=== PATIENT | male | born 1970 | race Caucasian/White ===

== ENCOUNTER 2018-03-25 20:29 | Emergency (ER) | payer OTHER ==
[2018-03-25 21:11] VITALS: RESP 18
--- NOTE | 2018-03-25 21:39 | ED ---
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 He reports that he was at a parking lot slipped and fell on ice and fell backwards hitting his head. He reports loss of consciousness. He reports that another masonry instructor found him and he was coveredin slight snow. He does not know for how long he lost consciousness before. Patient reports he drove himself here from [place] which is approximately 25-30 minutes away. Patient states that he feels slightly nauseated this time. He does complain of a headache.Patient denies blood thinner use. - Related Data Previous Rx's Medication Instructions Recorded Acetaminophen Tab [Tylenol Tab] 1,000 mg PO Q6HR #20 tablet 03/25/18 Ibuprofen 600 mg PO TID #20 tablet 03/25/18 Ondansetron Odt [Zofran Odt] 4 mg PO Q8HR PRN #12 tab 03/25/18 Allergies/Adverse reactions: Allergies Allergy/AdvReac Type Severity Reaction Status Date / Time No Known Allergies Allergy Verified 03/25/18 21:11 Review of Systems ROS Statement: Those systems with pertinent positive or pertinent negative responses have been documented in the HPI. ROS Other: All systems not noted in ROS Statement are negative. Past Medical History Past Medical History: CVA/TIA, Diabetes Mellitus, Hyperlipidemia, Hypertension History of Any Multi-Drug Resistant Organisms: None Reported Past Surgical History: Joint Replacement Additional Past Surgical History / Comment(s): Stent placed in groin Past Psychological History: No Psychological Hx Reported Smoking Status: Current every day smoker Past Alcohol Use History: None Reported Past Drug Use History: None Reported General Exam - General Exam Comments Initial Comments: 48-year-old male. Morbidly obese. Limitations: no limitations General appearance: alert, in no apparent distress Head exam: Present: atraumatic, normocephalic, normal inspection Eye exam: Present: normal appearance, PERRL, EOMI. Absent: scleral icterus, conjunctival injection, periorbital swelling ENT exam: Present: normal exam, mucous membranes moist Neck exam: Present: normal inspection. Absent: tenderness, meningismus, lymphadenopathy Respiratory exam: Present: normal lung sounds bilaterally. Absent: respiratory distress, wheezes, rales, rhonchi, stridor Cardiovascular Exam: Present: regular rate, normal rhythm, normal heart sounds. Absent: systolic murmur, diastolic murmur, rubs, gallop, clicks GI/Abdominal exam: Present: soft, normal bowel sounds. Absent: distended, tenderness, guarding, rebound, rigid Extremities exam: Present: normal inspection, full ROM, normal capillary refill. Absent: tenderness, pedal edema, joint swelling, calf tenderness Back exam: Present: normal inspection, full ROM Neurological exam: Present: alert, oriented X3, CN II-XII intact Expanded Patient oriented to: Present: person, place, time Speech: Present: fluid speech Cranial nerves: EOM's Intact: Normal Cerebellar function: Finger to Nose: Normal Upper motor neuron: Pronator Drift: Normal Sensory exam: Upper Extremity Light Touch: Normal, Lower Extremity Light Touch: Normal Motor strength exam: RUE: 5, LUE: 5, RLE: 5, LLE: 5 Eye Response: (4) open spontaneously Motor Response: (6) obeys commands Verbal Response: (5) oriented [place] Total: 15 Psychiatric exam: Present: normal affect, normal mood Skin exam: Present: warm, dry, intact, normal color. 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 He reports that he was at a parking lot slipped and fell on ice and fell backwards hitting his head. He reports loss of consciousness. Patient has no neurological deficits and does complain of nausea and dizziness. Patient given cT brain and C spine which are negative. Patient is with friends whom agree to monitor patient. DC with Rx for nausea medications. Discussed patient has concussion and should have follow up with PCP. Given note for work. - Radiology Data Radiology results: report reviewed Negative CT brain and C-spine Disposition Clinical Impression: Concussion with loss of consciousness Disposition: HOME SELF-CARE Condition: Good Instructions (If sedation given, give patient instructions): Concussion (ED) Additional Instructions: Patient is advised to follow-up with your primary care physician. Return to the emergency department if any alarming signs or symptoms occur. Motrin and Tylenol for pain. He can use Zofran for nausea. Patient should be monitored for the next 24 hours. Prescriptions: Acetaminophen Tab [Tylenol Tab] 1,000 mg PO Q6HR #20 tablet Ibuprofen 600 mg PO TID #20 tablet Ondansetron Odt [Zofran Odt] 4 mg PO Q8HR PRN #12 tab PRN Reason: Nausea Is patient prescribed a controlled substance at d/c from ED?: No Referrals: Mariam Jorge MD [Primary Care Provider] - 1-2 days Time of Disposition: 22:42
--- NOTE | 2018-03-25 21:54 | CT ---
EXAMINATION TYPE: CT brain vidya ortiz con DATE OF EXAM: 03/25/2018 COMPARISON: None HISTORY: Slipped on ice and hit head. +LOC. CT DLP: 1512.9 mGycm Automated exposure control for dose reduction was used. TECHNIQUE: CT scan of the head and cervical spine are performed without contrast. FINDINGS: Ventricles and sulci appear normal. There is no mass effect nor midline shift. There is n o sign of intracranial hemorrhage. The calvarium is intact. The cervical vertebra have normal alignment. Disc spaces are fairly normal. Posterior elements are in tact. Facet joints are intact. The skull base is intact. There is no evidence of cervical spine fract ure. IMPRESSION: Negative CT scan of the brain. Negative CT scan of the cervical spine. No fracture.
[2018-03-25] MEDS ORDERED: IBUPROFEN 600 MG TAB PO STA (22:15)
[2018-03-25] MEDS ORDERED: ACETAMINOPHEN TAB 500 MG TAB PO STA (22:15)
[2018-03-25] MEDS ORDERED: ONDANSETRON 4 MG ODT STARTER PACK 2 TAB BTL PO STA (22:45)
[2018-03-25 22:56] VITALS: BP 134/79; PULSE 95; TEMP 97.6
== END 2018-03-25 22:56 | disposition home or self-care (01) ==
LOC: EC 20:29
DX: S06.0X9A Concussion with loss of consciousness of unspecified duration, initial encounter (principal); R40.2142 Coma scale, eyes open, spontaneous, at arrival to emergency department; R40.2252 Coma scale, best verbal response, oriented, at arrival to emergency department; R40.2362 Coma scale, best motor response, obeys commands, at arrival to emergency department; F17.200 Nicotine dependence, unspecified, uncomplicated; Z86.73 Personal history of transient ischemic attack (TIA), and cerebral infarction without residual deficits; Z96.89 Presence of other specified functional implants; W00.0XXA Fall on same level due to ice and snow, initial encounter; Y92.481 Parking lot as the place of occurrence of the external cause; Y99.0 Civilian activity done for income or pay
CPT/HCPCS: 72125; 70450; 99284; S0119

== ENCOUNTER → 2018-10-04 | Outpatient (CLI) | payer OTHER ==
--- NOTE | 2018-10-04 13:41 | MR ---
EXAMINATION TYPE: MR lumbar spine wo con DATE OF EXAM: 10/04/2018 COMPARISON: NONE HISTORY: Strain of muscle, fascia and tendon, fell at work, pain x 2 months TECHNIQUE: Multiplanar, multisequence imaging of the lumbar spine is performed without IV contrast. FINDINGS: Sagittal images of the lumbar spine show vertebral body heights and alignment to appear sat isfactory. Disc desiccation L4-L5 and L5-S1 levels. Disc space heights are maintained. No large poste rior disc herniations on sagittal images. The conus medullaris is normal in position and signal endin g at L1 level. The bone marrow signal intensity is within normal limits. Axial images show the T12-L1, L1-L2, L2-L3, and L3-L4 levels to appear within normal limits. Axial images at the L4-L5 level show mild facet degenerative changes bilaterally with mild broad disc bulge causing mild left greater than right anterior inferior neural foraminal narrowing. Spinal sonal l is preserved. Axial images at the L5-S1 level show mild facet degenerative changes bilaterally with tiny central di sc protrusion but the spinal canal is preserved. There is mild left greater than right bilateral neur al foraminal narrowing. No suspicious incidental retroperitoneal findings. IMPRESSION: Mild multilevel degenerative changes lower lumbar spine as detailed above.
== END | disposition home or self-care (01) ==
LOC: RADMRIMAIN 12:35
PROVIDERS: ATTEND Pediatrics
DX: M47.817 Spondylosis without myelopathy or radiculopathy, lumbosacral region (principal)
CPT/HCPCS: 72148

== ENCOUNTER → 2018-11-14 | Outpatient (CLI) | payer OTHER | END | disposition home or self-care (01) | LOC: RADMRIMAIN 12:15 | PROVIDERS: ATTEND Physical Medicine & Rehabilitation | DX: Z53.9 Procedure and treatment not carried out, unspecified reason (principal) ==

== ENCOUNTER 2019-03-05 15:58 | Emergency (ER) | payer OTHER ==
[2019-03-05 16:30] VITALS: RESP 18; TEMP 98.8
--- NOTE | 2019-03-05 17:09 | US ---
EXAMINATION TYPE: US venous doppler duplex LE LT DATE OF EXAM: 03/05/2019 5:00 PM COMPARISON: NONE CLINICAL HISTORY: pain. Pt states left leg pain, pt states h/o of blood clot within brain SIDE PERFORMED: Left TECHNIQUE: The lower extremity deep venous system is examined utilizing real time linear array sonog stefania with graded compression, doppler sonography and color-flow sonography. VESSELS IMAGED: External Iliac Vein (EIV) Common Femoral Vein Deep Femoral Vein Greater Saphenous Vein * Femoral Vein Popliteal Vein Small Saphenous Vein * Proximal Calf Veins (* superficial vessels) Unable to visualize left EIV and GSV due to pt in too much pain to tolerate probe pressure within g roin Left Leg: Visualized portions show no evidence of DVT IMPRESSION: No evidence of deep venous thrombosis in the left leg.
[2019-03-05 17:17] LABS: Basophils # (A) 0.2 k/uL (0-0.2); Basophils % (A) 2 %; Eosinophils # (A) 0.6 k/uL (0-0.7); Eosinophils % (A) 5 %; HGB 15.6 gm/dL (13.0-17.5); Lymphocytes # (A) 2.5 k/uL (1.0-4.8); Lymphocytes % (A) 22 %; MCH 28.9 pg (25.0-35.0); MCHC 33.2 g/dL (31.0-37.0); MCV 87.2 fL (80.0-100.0); Monocytes # (A) 0.5 k/uL (0-1.0); Monocytes % (A) 4 %; Neutrophils # (A) 7.3 k/uL (1.3-7.7); Neutrophils % (A) 64 %; Platelet Count 264 k/uL (150-450); RBC 5.39 m/uL (4.30-5.90); RDW 12.9 % (11.5-15.5); WBC 11.3 k/uL (3.8-10.6)
--- NOTE | 2019-03-05 18:01 | XR ---
EXAMINATION TYPE: XR chest 2V DATE OF EXAM: 03/05/2019 COMPARISON: 02/15/2010 HISTORY: Chest pain TECHNIQUE: FINDINGS: Heart and mediastinum are normal and lungs are clear. Diaphragm is normal. Bony thorax appe ars normal. Pulmonary vascularity is normal. IMPRESSION: Normal chest.
[2019-03-05 18:07] LABS: African American GFR (CKD) >90 (>60 ml/min/1.73 sqM); Anion Gap 11 mmol/L; Blood Urea Nitrogen 17 mg/dL (9-20); Calcium 9.1 mg/dL (8.4-10.2); Carbon Dioxide 23 mmol/L (22-30); Chloride 103 mmol/L (98-107); Glucose 274 mg/dL (74-99); Non-African American GFR(CKD) >90 (>60 ml/min/1.73 sqM); Sodium 137 mmol/L (137-145)
[2019-03-05] MEDS ORDERED: ASPIRIN 81 MG PO STA (18:19)
--- NOTE | 2019-03-05 18:22 | ED ---
General Adult HPI - General Chief complaint: Extremity Injury, Lower Stated complaint: poss DVT in left leg Time Seen by Provider: 03/05/19 17:19 Source: patient Mode of arrival: ambulatory Limitations: no limitations - History of Present Illness Initial comments: 49-year-old male who presents to the emergency room today for evaluation of pain in his left groin. Patient reports that he has injuries from a few months ago to the left knee and hip. He reports that he did develop a varicosity in the left groin. He states he's had increasing amount of pain in this area and he was advised to come to the emergency room for evaluation to rule out DVT. In addition, the patient reports that he has been extremity chest pain and some shortness of breath on exertion. He reports the chest pain is left-sided in nature inferior to the left pectoralis. Patient reports that as a sharp achy pain. He states that it started about 5 days ago when he was exercising at the gym. He states that it has subsided and plan, however he has had some episodic shortness of breath with exertion. Patient has reported history of hypertension and diabetes and TIA in the past. He smokes cigarettes but denies drugs or alcohol. - Related Data Previous Rx's Medication Instructions Recorded Acetaminophen Tab [Tylenol Tab] 1,000 mg PO Q6HR #20 tablet 03/25/18 Ibuprofen 600 mg PO TID #20 tablet 03/25/18 Ondansetron Odt [Zofran Odt] 4 mg PO Q8HR PRN #12 tab 03/25/18 Allergies Allergy/AdvReac Type Severity Reaction Status Date / Time No Known Allergies Allergy Verified 03/25/18 21:11 Review of Systems ROS Statement: Those systems with pertinent positive or pertinent negative responses have been documented in the HPI. ROS Other: All systems not noted in ROS Statement are negative. Past Medical History Past Medical History: CVA/TIA, Diabetes Mellitus, Hyperlipidemia, Hypertension History of Any Multi-Drug Resistant Organisms: None Reported Past Surgical History: Joint Replacement Additional Past Surgical History / Comment(s): Stent placed in groin Past Psychological History: No Psychological Hx Reported Smoking Status: Current every day smoker Past Alcohol Use History: None Reported Past Drug Use History: None Reported General Exam Limitations: no limitations General appearance: alert, in no apparent distress Head exam: Present: atraumatic, normocephalic Respiratory exam: Present: normal lung sounds bilaterally. Absent: respiratory distress, wheezes, rhonchi Cardiovascular Exam: Present: regular rate, normal rhythm, normal heart sounds GI/Abdominal exam: Present: soft, distended, normal bowel sounds Extremities exam: Present: normal inspection, full ROM, normal capillary refill, calf tenderness (Mild left calf tenderness), other (Patient does have a varicosity in the medial aspect of the left groin. This mildly tender on palpation. There are 2+ bilateral femoral pulses. Patient has full range of motion at bilateral hips and knees.). Absent: pedal edema Back exam: Present: normal inspection, full ROM Neurological exam: Present: alert, oriented X3 Psychiatric exam: Present: normal affect, normal mood Skin exam: Present: warm, dry, intact, normal color Course Vital Signs 03/05/19 03/05/19 16:25 18:50 Temperature 98.8 F Pulse Rate 62 95 Respiratory 18 18 Rate Blood Pressure 137/89 133/73 O2 Sat by Pulse 98 93 L Oximetry - Reevaluation(s) Time: 18:30 (I discussed the results with the patient. I advised there is no evidence of DVT. I discussed chest x-ray as well as lab work. I advised the patient that I wanted to admit him to the hospital. I discussed that this would be best secondary to his symptoms and risk factors.) Time: 19:15 (I discussed this with patient that he is admitted to the hospital. Discussed that we will administer heparin. I advised that he'll be seen by cardiology. Discussed that he will have a stress test. Patient is now refusing to stay in the hospital. States he wants to think about it.) Time: 19:30 (I went back to see the patient, he has not had bedside at this time.) Time: 19:45 (Patient has returned to the bedside. I do believe he went outside to smoke a cigarette. I again advised the patient would be best if he was admitted to the hospital for ACS workup seen by cardiology and have a stress test. Patient states that he does not want to stay. He wants to leave AGAINST MEDICAL ADVICE. I did discuss with the patient that it would be best if he stay for completion of care. I did advise that we were going to administer heparin. I discussed that it would be better to complete care, patient relates that he will leave AGAINST MEDICAL ADVICE.) EKG Findings - EKG Comments: EKG Findings:: EKG was completed at 1639. Heart rate 92. Normal sinus rhythm OH 160 QRS 98 QT/QTC 362/447, normal axis. No ST elevation or depression noted. Medical Decision Making - Medical Decision Making HEART SCORE History Moderately suspicious 1, EKG: Normal 0 Age: 45-64 1 Risk factors >3 2 Initial Troponin Normal 0 HEART 4 49-year-old male presents to emergency room today for evaluation of left groin pain and intermittent exertional dyspnea with episodic chest pain. Patient denies any pain at this time. He has exertional dyspnea. He has multiple risk factors including obesity, tobacco abuse, hypertension as well as hy perlipidemia. Patient's heart score is 4. He has not had a stress test since 2017. Patient's EKG today here is within normal limits, normal sinus rhythm without any ST elevation or depression. His troponin is normal. D-dimer is negative. Ultrasound of the left lower extremity is negative. I discussed with patient that I would like to admit him to the hospital. Originally he was hesitant, however he then agreed. Patient was admitted in the hospital, however he signed out AGAINST MEDICAL ADVICE prior to replacing the order for him to be admitted. He understands that he was going to be admitted to the hospital placed on heparin as well as a cardiac consult. The patient refused admission to the hospital after pondering the admission for over half an hour. Patient understands that he is at risk for an acute MO. He and I had a multiple discussions in regards to the reasoning for admission to the hospital and nursing staff was present, vivien wilkinson I advised him I would be far better for him to stay here in the emergency room and be admitted to the hospital for completion of care. I advised that he could have an acute MO and . Patient verbalized understanding of the possible detrimental indications that could occur with him leaving against medical - Lab Data Result diagrams: 03/05/19 17:05 03/05/19 17:05 Lab Results 03/05/19 03/05/19 03/05/19 Range/Units 17:05 17:05 17:05 WBC 11.3 H (3.8-10.6) k/uL RBC 5.39 (4.30-5.90) m/uL Hgb 15.6 (13.0-17.5) gm/dL Hct 47.0 (39.0-53.0) % MCV 87.2 (80.0-100.0) fL MCH 28.9 (25.0-35.0) pg MCHC 33.2 (31.0-37.0) g/dL RDW 12.9 (11.5-15.5) % Plt Count 264 (150-450) k/uL Neutrophils % 64 % Lymphocytes % 22 % Monocytes % 4 % Eosinophils % 5 % Basophils % 2 % Neutrophils # 7.3 (1.3-7.7) k/uL Lymphocytes # 2.5 (1.0-4.8) k/uL Monocytes # 0.5 (0-1.0) k/uL Eosinophils # 0.6 (0-0.7) k/uL Basophils # 0.2 (0-0.2) k/uL D-Dimer 0.48 (<0.60) mg/L FEU Sodium (137-145) mmol/L Potassium (3.5-5.1) mmol/L Chloride (98-107) mmol/L Carbon Dioxide (22-30) mmol/L Anion Gap mmol/L BUN (9-20) mg/dL Creatinine (0.66-1.25) mg/dL Est GFR (CKD-EPI)AfAm (>60 ml/min/1.73 sqM) Est GFR (CKD-EPI)NonAf (>60 ml/min/1.73 sqM) Glucose (74-99) mg/dL Calcium (8.4-10.2) mg/dL Troponin I <0.012 (0.000-0.034) ng/mL 03/05/19 Range/Units 17:05 WBC (3.8-10.6) k/uL RBC (4.30-5.90) m/uL Hgb (13.0-17.5) gm/dL Hct (39.0-53.0) % MCV (80.0-100.0) fL MCH (25.0-35.0) pg MCHC (31.0-37.0) g/dL RDW (11.5-15.5) % Plt Count (150-450) k/uL Neutrophils % % Lymphocytes % % Monocytes % % Eosinophils % % Basophils % % Neutrophils # (1.3-7.7) k/uL Lymphocytes # (1.0-4.8) k/uL Monocytes # (0-1.0) k/uL Eosinophils # (0-0.7) k/uL Basophils # (0-0.2) k/uL D-Dimer (<0.60) mg/L FEU Sodium 137 (137-145) mmol/L Potassium 4.0 (3.5-5.1) mmol/L Chloride 103 (98-107) mmol/L Carbon Dioxide 23 (22-30) mmol/L Anion Gap 11 mmol/L BUN 17 (9-20) mg/dL Creatinine 0.83 (0.66-1.25) mg/dL Est GFR (CKD-EPI)AfAm >90 (>60 ml/min/1.73 sqM) Est GFR (CKD-EPI)NonAf >90 (>60 ml/min/1.73 sqM) Glucose 274 H (74-99) mg/dL Calcium 9.1 (8.4-10.2) mg/dL Troponin I (0.000-0.034) ng/mL When compared to previous EKG there are: previous EKG unavailable - Radiology Data Radiology results: report reviewed, image reviewed Disposition Clinical Impression: Chest pain, Exertional dyspnea, Leg pain, left Disposition: Left Against Medical Advice Condition: Stable Referrals: Mariam Jorge MD [Primary Care Provider] - 1-2 days
[2019-03-05 18:51] VITALS: BP 133/73; PULSE 95
== END 2019-03-05 19:57 | disposition left against medical advice (07) ==
LOC: EC 15:58
DX: M79.602 Pain in left arm (principal); R07.9 Chest pain, unspecified; R06.09 Other forms of dyspnea; R10.32 Left lower quadrant pain; F17.210 Nicotine dependence, cigarettes, uncomplicated; Z86.14 Personal history of Methicillin resistant Staphylococcus aureus infection; Z96.698 Presence of other orthopedic joint implants; Z53.29 Procedure and treatment not carried out because of patient's decision for other reasons
CPT/HCPCS: 36415; 71046; 80048; 84484; 85025; 85379; 99284

== ENCOUNTER 2019-08-08 02:46 | Observation (INO) | payer OTHER ==
[2019-08-08 02:58] VITALS: TEMP 98
[2019-08-08 03:00] LABS: Glucose,Whole Blood 112 mg/dL (75-99)
[2019-08-08 04:22] LABS: HCT 46.6 % (39.0-53.0); HGB 15.3 gm/dL (13.0-17.5); MCH 29.3 pg (25.0-35.0); MCHC 32.9 g/dL (31.0-37.0); MCV 88.8 fL (80.0-100.0); RBC 5.24 m/uL (4.30-5.90); RDW 13.3 % (11.5-15.5); WBC 14.2 k/uL (3.8-10.6)
[2019-08-08 04:23] LABS: Glucose,Whole Blood 69 mg/dL (75-99)
[2019-08-08 04:23] LABS: Basophils # (A) 0.2 k/uL (0-0.2); Basophils % (A) 1 %; Eosinophils # (A) 0.7 k/uL (0-0.7); Eosinophils % (A) 5 %; Lymphocytes # (A) 3.7 k/uL (1.0-4.8); Lymphocytes % (A) 26 %; Mean Platelet Volume 7.8; Monocytes # (A) 0.9 k/uL (0-1.0); Monocytes % (A) 6 %; Neutrophils # (A) 8.4 k/uL (1.3-7.7); Neutrophils % (A) 59 %; Platelet Count 256 k/uL (150-450)
[2019-08-08] MEDS ORDERED: DEXTROSE 5%-0.45% NACL 1,000 ML IV ONE (04:31)
[2019-08-08 04:33] LABS: African American GFR (CKD) >90 (>60 ml/min/1.73 sqM); Anion Gap 7 mmol/L; Blood Urea Nitrogen 13 mg/dL (9-20); Calcium 9.4 mg/dL (8.4-10.2); Carbon Dioxide 23 mmol/L (22-30); Chloride 108 mmol/L (98-107); Glucose 59 mg/dL (74-99); Non-African American GFR(CKD) >90 (>60 ml/min/1.73 sqM); Potassium 3.6 mmol/L (3.5-5.1); Sodium 138 mmol/L (137-145)
[2019-08-08 04:42] LABS: Glucose,Whole Blood 125 mg/dL (75-99)
[2019-08-08 05:07] LABS: Glucose,Whole Blood 144 mg/dL (75-99)
[2019-08-08] MEDS ORDERED: NALOXONE 0.4 MG/ML 1 ML VIAL IV PRN (06:06)
[2019-08-08] MEDS ORDERED: ONDANSETRON 4 MG/2 ML VIAL IVP PRN (06:06)
--- NOTE | 2019-08-08 06:14 | ED ---
General Adult HPI - General Chief complaint: Anxiety Stated complaint: Anxiety Time Seen by Provider: 08/08/19 03:21 Source: patient, EMS Mode of arrival: EMS Limitations: no limitations - History of Present Illness Initial comments: This patient is 49-year-old man who arrives for evaluation after having had a hypoglycemic episode. The patient also reports that he was feeling very anxious. He did have an argument and states that he broke up with his girlfriend after that. The patient then reportedly took an overdose of his insulin and his roommate had to call EMS when his blood sugar was low. The patient states that he was feeling better after receiving some dextrose. All of the symptoms have resolved. Onset/Timin -: hour(s) Consistency: now resolved Improves with: medication Worsens with: none Associated Symptoms: shortness of breath Treatments Prior to Arrival: none - Related Data Home Medications Medication Instructions Recorded Confirmed Dextroamphetamine/Amphetamine 20 mg PO TID 08/08/19 08/08/19 [Adderall] INSULIN LISPRO (humaLOG) [humaLOG] See Protocol SQ AC-TID 08/08/19 08/08/19 Insulin Glargine,Hum.rec.anlog 60 unit SQ QAM 08/08/19 08/08/19 [Basaglar Kwikpen U-100] Lisinopril [Zestril] 20 mg PO DAILY 08/08/19 08/08/19 Omeprazole [PriLOSEC] 40 mg PO DAILY 08/08/19 08/08/19 Simvastatin [Zocor] 20 mg PO HS 08/08/19 08/08/19 amLODIPine [Norvasc] 5 mg PO DAILY 08/08/19 08/08/19 metFORMIN HCL [Glucophage] 500 mg PO BID 08/08/19 08/08/19 Allergies Allergy/AdvReac Type Severity Reaction Status Date / Time No Known Allergies Allergy Verified 08/08/19 08:42 Review of Systems ROS Statement: Those systems with pertinent positive or pertinent negative responses have been documented in the HPI. ROS Other: All systems not noted in ROS Statement are negative. Constitutional: Denies: fever, chills Respiratory: Reports: dyspnea. Denies: cough, wheezes, hemoptysis Cardiovascular: Reports: palpitations. Denies: chest pain, edema, syncope Gastrointestinal: Denies: abdominal pain, nausea, vomiting, diarrhea Genitourinary: Denies: dysuria, hematuria Musculoskeletal: Denies: back pain Skin: Denies: rash Neurological: Denies: headache, weakness, numbness, paresthesias Psychiatric: Reports: anxiety, suicidal thoughts. Denies: auditory hallucinations, visual hallucinations, homicidal thoughts Past Medical History Past Medical History: CVA/TIA, Diabetes Mellitus, Hyperlipidemia, Hypertension History of Any Multi-Drug Resistant Organisms: None Reported Past Surgical History: Joint Replacement Additional Past Surgical History / Comment(s): Stent placed in groin Past Psychological History: No Psychological Hx Reported, Anxiety Smoking Status: Current every day smoker Past Alcohol Use History: Daily Past Drug Use History: Marijuana General Exam Limitations: no limitations General appearance: alert, in no apparent distress Head exam: Present: atraumatic, normocephalic Eye exam: Present: normal appearance. Absent: scleral icterus, conjunctival injection ENT exam: Present: mucous membranes dry Neck exam: Present: normal inspection Respiratory exam: Present: normal lung sounds bilaterally. Absent: respiratory distress, wheezes, rales, rhonchi, stridor Cardiovascular Exam: Present: regular rate, normal rhythm, normal heart sounds. Absent: systolic murmur, diastolic murmur, rubs, gallop GI/Abdominal exam: Present: soft. Absent: distended, tenderness, guarding, rebound, rigid, mass Extremities exam: Present: normal inspection, normal capillary refill. Absent: pedal edema, calf tenderness Back exam: Present: normal inspection. Absent: CVA tenderness (R), CVA tenderness (L) Neurological exam: Present: alert Psychiatric exam: Present: depressed, flat affect. Absent: agitated, manic, homicidal ideation, suicidal ideation Skin exam: Present: warm, dry, intact, normal color. Absent: rash Course Vital Signs 08/08/19 08/08/19 08/08/19 02:55 05:00 06:38 Temperature 98.0 F Pulse Rate 107 H 94 96 Respiratory 16 18 18 Rate Blood Pressure 134/75 117/72 131/78 O2 Sat by Pulse 94 L 92 L 96 Oximetry 08/08/19 08/08/19 08/08/19 08:00 09:00 10:51 Temperature Pulse Rate 92 92 Respiratory 18 18 20 Rate Blood Pressure 129/93 129/93 O2 Sat by Pulse 96 Oximetry Medical Decision Making - Medical Decision Making This patient is a 49-year-old man arrived by ambulance after she reportedly had an episode of hypoglycemia at home. The patient was reported by his roommate to have taken too much insulin. This followed an argument with his girlfriend which resulted in her breaking up with him. The patient is not being forthcoming about the full circumstances of his arrival here. We will admit the patient to have psychiatric consultation and monitor blood sugar to ensure that there is no further hypoglycemia. - Lab Data Result diagrams: 08/08/19 04:16 08/08/19 04:16 Lab Results 08/08/19 08/08/19 08/08/19 Range/Units 02:52 04:16 04:16 WBC 14.2 H (3.8-10.6) k/uL RBC 5.24 (4.30-5.90) m/uL Hgb 15.3 (13.0-17.5) gm/dL Hct 46.6 (39.0-53.0) % MCV 88.8 (80.0-100.0) fL MCH 29.3 (25.0-35.0) pg MCHC 32.9 (31.0-37.0) g/dL RDW 13.3 (11.5-15.5) % Plt Count 256 (150-450) k/uL Neutrophils % 59 % Lymphocytes % 26 % Monocytes % 6 % Eosinophils % 5 % Basophils % 1 % Neutrophils # 8.4 H (1.3-7.7) k/uL Lymphocytes # 3.7 (1.0-4.8) k/uL Monocytes # 0.9 (0-1.0) k/uL Eosinophils # 0.7 (0-0.7) k/uL Basophils # 0.2 (0-0.2) k/uL Sodium 138 (137-145) mmol/L Potassium 3.6 (3.5-5.1) mmol/L Chloride 108 H (98-107) mmol/L Carbon Dioxide 23 (22-30) mmol/L Anion Gap 7 mmol/L BUN 13 (9-20) mg/dL Creatinine 0.67 (0.66-1.25) mg/dL Est GFR (CKD-EPI)AfAm >90 (>60 ml/min/1.73 sqM) Est GFR (CKD-EPI)NonAf >90 (>60 ml/min/1.73 sqM) Glucose 59 L (74-99) mg/dL POC Glucose (mg/dL) 112 H (75-99) mg/dL POC Glu Wire Photo Operator News ID Justus, Joan Calcium 9.4 (8.4-10.2) mg/dL 08/08/19 08/08/19 08/08/19 Range/Units 04:20 04:40 05:06 WBC (3.8-10.6) k/uL RBC (4.30-5.90) m/uL Hgb (13.0-17.5) gm/dL Hct (39.0-53.0) % MCV (80.0-100.0) fL MCH (25.0-35.0) pg MCHC (31.0-37.0) g/dL RDW (11.5-15.5) % Plt Count (150-450) k/uL Neutrophils % % Lymphocytes % % Monocytes % % Eosinophils % % Basophils % % Neutrophils # (1.3-7.7) k/uL Lymphocytes # (1.0-4.8) k/uL Monocytes # (0-1.0) k/uL Eosinophils # (0-0.7) k/uL Basophils # (0-0.2) k/uL Sodium (137-145) mmol/L Potassium (3.5-5.1) mmol/L Chloride (98-107) mmol/L Carbon Dioxide (22-30) mmol/L Anion Gap mmol/L BUN (9-20) mg/dL Creatinine (0.66-1.25) mg/dL Est GFR (CKD-EPI)AfAm (>60 ml/min/1.73 sqM) Est GFR (CKD-EPI)NonAf (>60 ml/min/1.73 sqM) Glucose (74-99) mg/dL POC Glucose (mg/dL) 69 L 125 H 144 H (75-99) mg/dL POC Glu Wire Photo Operator News ID Justus, Joan Sean, Constance Sean, Constance Calcium (8.4-10.2) mg/dL Disposition Clinical Impression: Hypoglycemia due to insulin Disposition: ADMITTED IP TO THIS [facility] Condition: Fair
[2019-08-08 06:37] LABS: Glucose,Whole Blood 232 mg/dL (75-99)
[2019-08-08 09:12] LABS: Glucose,Whole Blood 233 mg/dL (75-99)
[2019-08-08 09:22] VITALS: BP 129/93; PULSE 92
--- NOTE | 2019-08-08 10:42 | P.HPIM ---
History of Present Illness This is a 49 years old male who presented boarding mother for hypoglycemic episodes. I was called by the bedside nurse in the emergency room the patient's once to leave and that the night nurse stated that his roommate mentioned he w anted to hurt himself. , When I came to the room Patient was then stop and standing at bedside looking angry and stating that he does want to leave explained to him I have to talk to him before this can happen, when asking why he came to the hospital he said thickened because of panic attack. But I told him that when he came in his sugar was low he admitted he took extra insulin and that was an accident and that he was drunk last night. he said that he is a diabetic and he takes 60 units once daily long-acting insulin and 30 units of short acting insulin with meals. It was still in the beginning of the encounter and while I was talking to him he just left, I had to call the security to prevent him from leaving, then he's start arguing angularly that yes he had quarrel with his girlfriend, and that was about 19 days ago and he does not care about that. And he was talking angrily to the security guide and to me that he doesn't ago and he become the phone and called his finger waver. And after finishing talking to his finger waver he tried to leave again and the security try to hold him. Because of his angry acting and refusal to give me full evaluation and information, and based also on the information related to me from the bedside nurse and from the notes from the night physician I petitioned the patient still full psychiatric evaluation, especially patient already has a psych consult placed in the chart for the psychiatrist Dr. Hill and the reason was insulin overdose. I tried to explain the patient why we are holding him against his will to a psychiatrist sees him and assess him, he is still angry and he will call me several times asking that when the psychiatrist would come to see him and then asked me to leave "get the F... Out of my face" As per the over-night physician Dr. Monteiro who already left, Branch his note that (He did have an argument and states that he broke up with his girlfriend after that. The patient then reportedly took an overdose of his insulin and his roommate had to call EMS when his blood sugar was low. The patient states that he was feeling better after receiving some dextrose. All of the symptoms have resolved.) Also he wrote :(The patient was reported by his roommate to have taken too much insulin. This followed an argument with his girlfriend which resulted in her breaking up with him. The patient is not being forthcoming about the full circumstances of his arrival here. We will admit the patient to have psychiatric consultation and monitor blood sugar to ensure that there is no further hypoglycemia.) [place] [id number] [address] and explained the situation for her so Patient can be evaluated at as soon as possible by psychiatrist, she told me should try to find the psychiatrist Dr. Hill and come and evaluate the patient Review of Systems Patient refused to complete encounter Past Medical History Past Medical History: CVA/TIA, Diabetes Mellitus, Hyperlipidemia, Hypertension History of Any Multi-Drug Resistant Organisms: None Reported Past Surgical History: Joint Replacement Additional Past Surgical History / Comment(s): Stent placed in groin Past Psychological History: No Psychological Hx Reported, Anxiety Smoking Status: Current every day smoker Past Alcohol Use History: Daily Past Drug Use History: Marijuana Medications and Allergies Home Medications Medication Instructions Recorded Confirmed Type Dextroamphetamine/Amphetamine 20 mg PO TID 08/08/19 08/08/19 History [Adderall] INSULIN LISPRO (humaLOG) [humaLOG] See Protocol SQ AC-TID 08/08/19 08/08/19 History Insulin Glargine,Hum.rec.anlog 60 unit SQ QAM 08/08/19 08/08/19 History [Basaglar Kwikpen U-100] Lisinopril [Zestril] 20 mg PO DAILY 08/08/19 08/08/19 History Omeprazole [PriLOSEC] 40 mg PO DAILY 08/08/19 08/08/19 History Simvastatin [Zocor] 20 mg PO HS 08/08/19 08/08/19 History amLODIPine [Norvasc] 5 mg PO DAILY 08/08/19 08/08/19 History metFORMIN HCL [Glucophage] 500 mg PO BID 08/08/19 08/08/19 History Allergies Allergy/AdvReac Type Severity Reaction Status Date / Time No Known Allergies Allergy Verified 08/08/19 08:42 Physical Exam Vitals: Vital Signs Temp Pulse Resp BP Pulse Ox 08/08/19 09:00 92 18 129/93 08/08/19 08:00 18 08/08/19 06:38 96 18 131/78 96 08/08/19 05:00 94 18 117/72 92 L 08/08/19 02:55 98.0 F 107 H 16 134/75 94 L Intake and Output 08/07/19 08/08/19 08/08/19 22:59 06:59 14:59 Other: Weight 126.099 kg Patient refused examination Results CBC & Chem 7: 08/08/19 04:16 08/08/19 04:16 Labs: Abnormal Lab Results - Last 24 Hours (Table) 08/08/19 08/08/19 08/08/19 Range/Units 02:52 04:16 04:16 WBC 14.2 H (3.8-10.6) k/uL Neutrophils # 8.4 H (1.3-7.7) k/uL Chloride 108 H (98-107) mmol/L Glucose 59 L (74-99) mg/dL POC Glucose (mg/dL) 112 H (75-99) mg/dL 08/08/19 08/08/19 08/08/19 Range/Units 04:20 04:40 05:06 WBC (3.8-10.6) k/uL Neutrophils # (1.3-7.7) k/uL Chloride (98-107) mmol/L Glucose (74-99) mg/dL POC Glucose (mg/dL) 69 L 125 H 144 H (75-99) mg/dL 08/08/19 08/08/19 Range/Units 06:36 09:01 WBC (3.8-10.6) k/uL Neutrophils # (1.3-7.7) k/uL Chloride (98-107) mmol/L Glucose (74-99) mg/dL POC Glucose (mg/dL) 232 H 233 H (75-99) mg/dL Assessment and Plan Assessment: Assessment and plan -Patient is angry and impulsive, refusal to talk to to me as his physician regarding his illness and full evaluation, with possible suicidal thoughts and intervention to kill himself or hurt himself through injecting extra doses of insulin, another possibility is this could be an accident. Psych consult already called. Since patient is refusing to cooperate with the medical team for full evaluation and trying to leave , I petitioned him till a psychiatrist comes and evaluate the patient as there is risk that the patient may go outside kills themselves or hurt others. -Diabetes mellitus with hyperglycemia. Also patient refused full evaluation and he did not want to talk to me and finish the evaluation. -Hypertension (per documentation) patient did not want to talk to medical team anymore -Hyperlipidemia (per documentation) patient did not want to talk to medical team anymore -History of CVA/TIA (per documentation) patient did not want to talk to medical team anymore
[2019-08-08 10:54] VITALS: RESP 20
--- NOTE | 2019-08-08 10:54 | P.CN ---
Psychiatric Consult - . Consult date: 08/08/19 Consult:: IDENTIFYING DATA: He is a 49-year-old single male admitted to the ED for evaluation and treatment of a presumed overdose with insulin. HISTORY OF PRESENT ILLNESS: I reviewed the medical record and interviewed the patient. According to the ED physician's note he had an argument with his girlfriend, broke up with his girlfriend and "reportedly" took an overdose of insulin. He presented to ED via EMS and his blood glucose was in the 50s. He alleged that she unintentionally took 2 doses of insulin yesterday. He denied that he had taken insulin and a suicide attempt. He has a history of an alcohol use disorder and was drinking mostly day yesterday. He and his friend he consumed approximately a half a gallon of whiskey. He alleged that he did not remember taking his evening dose of insulin. After he took the second dose of insulin his roommate called EMS. He denied feeling depressed or having thoughts of or suicide. He denied a past history of suicide attempts or gestures. He complains of anxiety and "panic attacks". He denied obsessions or compulsions. He denied experiencing auditory, visual or olfactory hallucinations, ideas reference, thought insertion, thought broadcasting or thought control. When I inquired about the amount and frequency of his alcohol use he replied that he "drinks whenever I can." He alleges he works "sometimes 16 or 17 hours per day." When he gets off work and on the days that he does not work he drinks alcohol "all day". He denied that friends or family have complained him about his alcohol use. He denied use of other drugs to get high, help him sleep or changes mood with the exception of "occasional" marijuana. There is no BAT or urine drug screen available for review. PAST PSYCHIATRIC HISTORY: He had no psychiatric hospitalizations. He has been meeting with an individual therapist through [employer] for "over 2 years". He began meeting with therapist after the of his sister. She was murdered by her after she received a substantial legal settlement. PAST MEDICAL HISTORY: CVA, diabetes mellitus, hyperlipidemia and hypertension. ALLERGIES: NO KNOWN DRUG ALLERGIES SUBSTANCE USE HISTORY: He is never participated in a substance abuse treatment program. He has never attended Alcoholics Anonymous, etc. anonymous. During the interview, he expressed an interest and outpatient substance abuse services. FAMILY PSYCHIATRIC/SUBSTANCE USE HISTORY: He denied a family history of substance abuse or psychiatric problems. SOCIAL HISTORY: He was born and raised in [place] to an intact family. He has 3 sisters and 2 brothers. He is single and has 1 child out of wedlock. 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 One sister was murdered by her after she received a large legal settlement. MENTAL STATUS EXAM: He presented as a moderately obese 49-year-old male with multiple tattoos. He made eye contact and attended to interview. He had no prominent physical abnormalities. He had a irritable facial expression. He was alert and oriented to person, place and time. He showed no abnormality of psychomotor activity. Her speech was guarded but with normal rhythm and volume. His affect was guarded and somewhat irritable but appropriate and control. He denied suicidal ideation and wishes. He is not homicidal ideation. He denied feeling hopeless, helpless or worthless. He did not express ideas reference, paranoid ideation or delusions. His thinking was abstract and associations were coherent, logical and goal directed. He denied hallucinations and did not appear to responding to internal stimuli. IMPRESSIONS: He is a single 49-year-old male presented to the ED following a presumed overdose of insulin. He told the ED physician that he was distressed following an argument and the breakup with his girlfriend. The progress notes indicates that he "supposedly" overdose on insulin. He alleged that he unintentionally and accidentally took a second dose of insulin yesterday evening. He had been drinking all evening with friends and did not remember initially taken the dose. He described a history of heavy alcohol use. He expressed no interest and outpatient substance abuse treatment services. DIAGNOSIS: Alcohol use disorder severe, cannabis use disorder, relationship problems RECOMMENDATION: There is no indication for transfer to the psychiatric unit. He should continue with his outpatient mental health services through [facility] family welfare social work professor. [facility] nurse will provide him information about substance abuse services. 08/08/19 10:35
--- NOTE | 2019-08-08 10:59 | P.DS ---
Providers Date of admission: 08/08/19 06:13 Attending physician: Braulio Franklin Consults: 08/08/19 06:07 Consult Physician Routine Consulting Provider: Filemon Hill Consult Reason/Comments: Insulin overdose Do you want consulting provider notified?: Yes Primary care physician: Eloina [facility] Course: Diagnoses: Assessment and plan -Hypoglycemic episode, sugar was critically low on admission at 59, currently is 2332, patient treated with D5 normal saline. Psychiatrist evaluated the patient and to rule out any suicidal or homicidal intense. -Diabetes mellitus with hypoglycemia. It was an accident. Patient is counseled -Hypertension -Hyperlipidemia -History of CVA/TIA Hospital course: This is a pleasant 49 years old male with past medical history of diabetes mellitus, hypertension, hyperlipidemia. Presented to the hospital with hypoglycemic an episode. There was suspicion of suicidal thoughts so psychiatrist evaluated the patient and cleared him for discharge. Patient initially was refusing to talk to me however after the psychiatrist cleared him for discharge he was sitting on chair smiling, looking comfortable and talking nice to me. And I explained to him the rationale for holding until psychiatric saw him and he did not seem to be bothered about it at this time and he started talking to me telling me that yesterday around 10:00 at night he took a 30 units of short acting insulin and then he got distracted and forgot he already took it so he shot himself with another dose of 30 units of short acting insulin, and explained to me that this was an accident. I explained to the patient the dangers of hypoglycemia including but not limited to the risk of stroke, and I suggested that next Time if he forgets he may not take a second dose of insulin but instead he keeps checking his sugar to make sure his sugar is elevated and not dropping before he takes another dose. Also I advised him to check his suga r 4 times a day. Patient is informed about his leukocytosis however he denies any chest pain or dyspnea, no coughing, no change in urine or bowel habits. No fever. Patient sugar is corrected. He wants to go to work and he does not want to stay in the hospital I discussed the case with the psychiatrist Dr. Bridges, who confirmed to me he talked to the patient and cleared her for discharge and he does not need any psychiatric admission, and history referred him to [facility]una (EPS nurse will provide him with the resources). I counseled the patient to follow-up with his PCP Annette Urena within one week to check his WBC with her also I advised him to take his papers were faxed to her office on his appointment date and he agrees to call and make an appointment Problems and management plan were discussed with the patient and he verbalized understanding and acceptance. Patient does not want to stay in the hospital because he wants to go to work. Patient was found stable and can be discharged home however he needs follow-up as an outpatient. Patient was instructed to follow up with PCP within one week and patient agrees Physical exam (this time patient allowed me to examine him, he was refusing at the beginning) Gen: patient is a AAOx3, no distress. Obese CVS: S1-S2, RRR, no murmur Lungs: B/L CTA, no wheezing Abdomen: soft, no distention, no tenderness, positive bowel sounds Extremity: no leg edema or induration gait: Normal Time spent more than 35 minutes Plan - Discharge Summary New Discharge Prescriptions: Continue Simvastatin [Zocor] 20 mg PO HS Omeprazole [PriLOSEC] 40 mg PO DAILY metFORMIN HCL [Glucophage] 500 mg PO BID Lisinopril [Zestril] 20 mg PO DAILY INSULIN LISPRO (humaLOG) [humaLOG] See Protocol SQ AC-TID Insulin Glargine,Hum.rec.anlog [Basaglar Kwikpen U-100] 60 unit SQ QAM Dextroamphetamine/Amphetamine [Adderall] 20 mg PO TID amLODIPine [Norvasc] 5 mg PO DAILY Discharge Medication List Dextroamphetamine/Amphetamine [Adderall] 20 mg PO TID 08/08/19 [History] INSULIN LISPRO (humaLOG) [humaLOG] See Protocol SQ AC-TID 08/08/19 [History] Insulin Glargine,Hum.rec.anlog [Basaglar Kwikpen U-100] 60 unit SQ QAM 08/08/19 [History] Lisinopril [Zestril] 20 mg PO DAILY 08/08/19 [History] Omeprazole [PriLOSEC] 40 mg PO DAILY 08/08/19 [History] Simvastatin [Zocor] 20 mg PO HS 08/08/19 [History] amLODIPine [Norvasc] 5 mg PO DAILY 08/08/19 [History] metFORMIN HCL [Glucophage] 500 mg PO BID 08/08/19 [History] Follow up Appointment(s)/Referral(s): Eloina Urena FNPBC [Primary Care Provider] - 1-2 days Patient Instructions/Handouts: Generalized Anxiety Disorder (ED) Discharge Disposition: HOME SELF-CARE
== END 2019-08-08 12:03 | disposition home or self-care (01) ==
LOC: EC 02:46 → 1SOBS 06:13
PROVIDERS: ADMIT Hospitalist; ATTEND Hospitalist
DX: T38.3X1A Poisoning by insulin and oral hypoglycemic [antidiabetic] drugs, accidental (unintentional), initial encounter (principal); E11.649 Type 2 diabetes mellitus with hypoglycemia without coma; D72.829 Elevated white blood cell count, unspecified; F41.9 Anxiety disorder, unspecified; I10 Essential (primary) hypertension; E78.5 Hyperlipidemia, unspecified; F17.200 Nicotine dependence, unspecified, uncomplicated; F41.0 Panic disorder [episodic paroxysmal anxiety]; R45.87 Impulsiveness; R45.4 Irritability and anger; E11.65 Type 2 diabetes mellitus with hyperglycemia; Z79.4 Long term (current) use of insulin; Z79.899 Other long term (current) drug therapy; Z86.73 Personal history of transient ischemic attack (TIA), and cerebral infarction without residual deficits; Z96.60 Presence of unspecified orthopedic joint implant
CPT/HCPCS: 96365; 96366; 99285; 36415; 80048; 85025; G0378

== ENCOUNTER 2019-08-27 01:36 | Emergency (ER) | payer OTHER ==
[2019-08-27 01:41] VITALS: RESP 18; TEMP 98.5
[2019-08-27] MEDS ORDERED: ONDANSETRON ODT 4 MG TAB PO STA (01:45)
[2019-08-27] MEDS ORDERED: diazePAM 5 MG TAB PO STA ×2 (01:45→03:57)
--- NOTE | 2019-08-27 02:02 | ED ---
Anxiety HPI - General Chief Complaint: Chest Pain Stated Complaint: Chest Pain Time Seen by Provider: 08/27/19 01:39 Source: patient, RN notes reviewed, old records reviewed Mode of arrival: ambulatory Limitations: no limitations - History of Present Illness Initial Comments: This is a 49-year-old male DF for evaluation. Patient is increased stress and anxiety secondary to breaking up with his girlfriend. Patient states these do drugs revealed including crack cocaine patient lasted this about 2 days ago and is having increasing anxiety especially increasing anxiety tonight not homicidal or suicidal no drugs or alcohol abuse as of recent MD Complaint: anxiety, heart racing -: hour(s) Symptoms: dyspnea, perioral numbness/tingling Place: home Previous History of Same: Yes Severity: moderate Quality: constant Provoking factors: emotional stress, medication change, other (quit crack) Improves With: nothing Worsens With: nothing Associated symptoms: denies other symptoms - Related Data Home Medications: Home Medications Medication Instructions Recorded Confirmed Dextroamphetamine/Amphetamine 20 mg PO TID 08/08/19 08/08/19 [Adderall] INSULIN LISPRO (humaLOG) [humaLOG] See Protocol SQ AC-TID 08/08/19 08/08/19 Insulin Glargine,Hum.rec.anlog 60 unit SQ QAM 08/08/19 08/08/19 [Basaglar Teresa U-100] Omeprazole [PriLOSEC] 40 mg PO DAILY 08/08/19 08/08/19 Simvastatin [Zocor] 20 mg PO HS 08/08/19 08/08/19 amLODIPine [Norvasc] 5 mg PO DAILY 08/08/19 08/08/19 lisinopriL [Zestril] 20 mg PO DAILY 08/08/19 08/08/19 Previous Rx's Medication Instructions Recorded diazePAM [Valium] 5 mg PO TID PRN 3 Days #9 tab 08/27/19 metFORMIN HCL [Glucophage] 500 mg PO BID #60 tab 08/27/19 Allergies/Adverse Reactions: Allergies Allergy/AdvReac Type Severity Reaction Status Date / Time No Known Allergies Allergy Verified 08/27/19 01:42 Review of Systems ROS Statement: Those systems with pertinent positive or pertinent negative responses have been documented in the HPI. ROS Other: All systems not noted in ROS Statement are negative. Past Medical History Past Medical History: CVA/TIA, Diabetes Mellitus, Hyperlipidemia, Hypertension History of Any Multi-Drug Resistant Organisms: None Reported Past Surgical History: Joint Replacement Additional Past Surgical History / Comment(s): Stent placed in groin Past Psychological History: No Psychological Hx Reported, Anxiety Smoking Status: Current every day smoker Past Alcohol Use History: None Reported Past Drug Use History: Cocaine, Marijuana General Exam Limitations: no limitations General appearance: alert, in no apparent distress, anxious Head exam: Present: atraumatic, normocephalic, normal inspection Eye exam: Present: normal appearance, PERRL, EOMI. Absent: scleral icterus, conjunctival injection, periorbital swelling ENT exam: Present: normal exam, mucous membranes moist Neck exam: Present: normal inspection. Absent: tenderness, meningismus, lymphadenopathy Respiratory exam: Present: normal lung sounds bilaterally. Absent: respiratory distress, wheezes, rales, rhonchi, stridor Cardiovascular Exam: Present: normal rhythm, tachycardia, normal heart sounds. Absent: systolic murmur, diastolic murmur, rubs, gallop, clicks GI/Abdominal exam: Present: soft, normal bowel sounds. Absent: distended, tenderness, guarding, rebound, rigid Extremities exam: Present: normal inspection, full ROM, normal capillary refill. Absent: tenderness, pedal edema, joint swelling, calf tenderness Back exam: Present: normal inspection Neurological exam: Present: alert, oriented X3, CN II-XII intact Psychiatric exam: Present: normal affect, normal mood Skin exam: Present: warm, dry, intact, normal color. Absent: rash Course Vital Signs 08/27/19 08/27/19 08/27/19 01:38 02:00 04:18 Temperature 98.5 F Pulse Rate 102 H 83 Respiratory 18 18 Rate Blood Pressure 136/90 138/89 O2 Sat by Pulse 94 L 96 96 Oximetry - Reevaluation(s) Reevaluation #1: Medical record is reviewed Patient admits to not wanting to know just that nothing is wrong Informed results and questions are answered Medical Decision Making - Medical Decision Making 49 male the ER with increased anxiety secondary to crack cocaine cessation, patient will smoke crack cocaine, patient feeling better here in the ER and is okay for discharge home - Lab Data Result diagrams: 08/27/19 02:39 08/27/19 02:39 Lab Results 07/08/27/19 08/27/19 Range/Units 02:39 02:39 02:39 WBC 10.4 (3.8-10.6) k/uL RBC 5.57 (4.30-5.90) m/uL Hgb 16.3 (13.0-17.5) gm/dL Hct 49.8 (39.0-53.0) % MCV 89.4 (80.0-100.0) fL MCH 29.2 (25.0-35.0) pg MCHC 32.7 (31.0-37.0) g/dL RDW 13.0 (11.5-15.5) % Plt Count 196 (150-450) k/uL Neutrophils % 60 % Lymphocytes % 25 % Monocytes % 7 % Eosinophils % 4 % Basophils % 1 % Neutrophils # 6.2 (1.3-7.7) k/uL Lymphocytes # 2.6 (1.0-4.8) k/uL Monocytes # 0.7 (0-1.0) k/uL Eosinophils # 0.4 (0-0.7) k/uL Basophils # 0.1 (0-0.2) k/uL Sodium 134 L (137-145) mmol/L Potassium 3.8 (3.5-5.1) mmol/L Chloride 101 (98-107) mmol/L Carbon Dioxide 24 (22-30) mmol/L Anion Gap 9 mmol/L BUN 13 (9-20) mg/dL Creatinine 0.76 (0.66-1.25) mg/dL Est GFR (CKD-EPI)AfAm >90 (>60 ml/min/1.73 sqM) Est GFR (CKD-EPI)NonAf >90 (>60 ml/min/1.73 sqM) Glucose 366 H (74-99) mg/dL Calcium 9.1 (8.4-10.2) mg/dL Magnesium 1.9 (1.6-2.3) mg/dL Total Bilirubin 0.6 (0.2-1.3) mg/dL AST 40 (17-59) U/L ALT 60 H (4-49) U/L Alkaline Phosphatase 64 (38-126) U/L Troponin I <0.012 (0.000-0.034) ng/mL NT-Pro-B Natriuret Pep pg/mL Total Protein 6.7 (6.3-8.2) g/dL Albumin 4.3 (3.5-5.0) g/dL Lipase 294 (23-300) U/L 08/27/19 Range/Units 02:42 WBC (3.8-10.6) k/uL RBC (4.30-5.90) m/uL Hgb (13.0-17.5) gm/dL Hct (39.0-53.0) % MCV (80.0-100.0) fL MCH (25.0-35.0) pg MCHC (31.0-37.0) g/dL RDW (11.5-15.5) % Plt Count (150-450) k/uL Neutrophils % % Lymphocytes % % Monocytes % % Eosinophils % % Basophils % % Neutrophils # (1.3-7.7) k/uL Lymphocytes # (1.0-4.8) k/uL Monocytes # (0-1.0) k/uL Eosinophils # (0-0.7) k/uL Basophils # (0-0.2) k/uL Sodium (137-145) mmol/L Potassium (3.5-5.1) mmol/L Chloride (98-107) mmol/L Carbon Dioxide (22-30) mmol/L Anion Gap mmol/L BUN (9-20) mg/dL Creatinine (0.66-1.25) mg/dL Est GFR (CKD-EPI)AfAm (>60 ml/min/1.73 sqM) Est GFR (CKD-EPI)NonAf (>60 ml/min/1.73 sqM) Glucose (74-99) mg/dL Calcium (8.4-10.2) mg/dL Magnesium (1.6-2.3) mg/dL Total Bilirubin (0.2-1.3) mg/dL AST (17-59) U/L ALT (4-49) U/L Alkaline Phosphatase (38-126) U/L Troponin I (0.000-0.034) ng/mL NT-Pro-B Natriuret Pep 13 pg/mL Total Protein (6.3-8.2) g/dL Albumin (3.5-5.0) g/dL Lipase (23-300) U/L - EKG Data -: EKG Interpreted by Me (EKG is sinus a 92, MT 164 QRS 96 QTC 450) - Radiology Data Radiology results: report reviewed (Chest x-rays negative for acute disease), image reviewed Disposition Clinical Impression: Atypical chest pain, Anxiety Disposition: HOME SELF-CARE Condition: Good Instructions (If sedation given, give patient instructions): Anxiety (ED) Prescriptions: metFORMIN HCL [Glucophage] 500 mg PO BID #60 tab diazePAM [Valium] 5 mg PO TID PRN 3 Days #9 tab PRN Reason: Anxiety Is patient prescribed a controlled substance at d/c from ED?: No Referrals: Mariam Jorge MD [Primary Care Provider] - 1-2 days
--- NOTE | 2019-08-27 02:13 | XR ---
EXAMINATION TYPE: XR chest 2V DATE OF EXAM: 08/27/2019 COMPARISON: 03/05/2019 HISTORY: Chest pain TECHNIQUE: 2 views FINDINGS: Heart and mediastinum are normal. Lungs are clear. Diaphragm is normal. Bony thorax appears normal. Pulmonary vascularity is normal. IMPRESSION: Normal chest. Normal heart. No change.
[2019-08-27] MEDS ORDERED: SODIUM CHLORIDE 0.9% 1,000 ML IV STA ×2 (02:37→03:32)
[2019-08-27] MEDS ORDERED: KETOROLAC 30 MG/ML 1 ML VIAL IVP STA (02:37)
[2019-08-27] MEDS ORDERED: LORazepam 2 MG/ML INJ IV STA (02:38)
[2019-08-27 02:52] LABS: Basophils # (A) 0.1 k/uL (0-0.2); Basophils % (A) 1 %; Eosinophils # (A) 0.4 k/uL (0-0.7); Eosinophils % (A) 4 %; HCT 49.8 % (39.0-53.0); HGB 16.3 gm/dL (13.0-17.5); Lymphocytes # (A) 2.6 k/uL (1.0-4.8); Lymphocytes % (A) 25 %; MCH 29.2 pg (25.0-35.0); MCHC 32.7 g/dL (31.0-37.0); MCV 89.4 fL (80.0-100.0); Mean Platelet Volume 8.2; Monocytes # (A) 0.7 k/uL (0-1.0); Monocytes % (A) 7 %; Neutrophils # (A) 6.2 k/uL (1.3-7.7); Neutrophils % (A) 60 %; Platelet Count 196 k/uL (150-450); RBC 5.57 m/uL (4.30-5.90); WBC 10.4 k/uL (3.8-10.6)
[2019-08-27 02:56] LABS: ALT 60 U/L (4-49); AST 40 U/L (17-59); African American GFR (CKD) >90 (>60 ml/min/1.73 sqM); Albumin 4.3 g/dL (3.5-5.0); Alkaline Phosphatase 64 U/L (38-126); Anion Gap 9 mmol/L; Blood Urea Nitrogen 13 mg/dL (9-20); Calcium 9.1 mg/dL (8.4-10.2); Carbon Dioxide 24 mmol/L (22-30); Chloride 101 mmol/L (98-107); Glucose 366 mg/dL (74-99); Magnesium 1.9 mg/dL (1.6-2.3); Non-African American GFR(CKD) >90 (>60 ml/min/1.73 sqM); Potassium 3.8 mmol/L (3.5-5.1); Sodium 134 mmol/L (137-145); Total Bilirubin 0.6 mg/dL (0.2-1.3); Total Protein 6.7 g/dL (6.3-8.2)
[2019-08-27] MEDS ORDERED: metFORMIN 500 MG TAB PO STA (03:32)
[2019-08-27 04:19] VITALS: BP 138/89; PULSE 83
== END 2019-08-27 04:33 | disposition home or self-care (01) ==
LOC: EC 01:36
DX: F41.9 Anxiety disorder, unspecified (principal); R07.89 Other chest pain; E11.9 Type 2 diabetes mellitus without complications; I10 Essential (primary) hypertension; E78.5 Hyperlipidemia, unspecified; F17.200 Nicotine dependence, unspecified, uncomplicated; Z79.4 Long term (current) use of insulin; Z79.899 Other long term (current) drug therapy; Z86.73 Personal history of transient ischemic attack (TIA), and cerebral infarction without residual deficits
CPT/HCPCS: 36415; 93005; 83880; 80053; 83690; 83735; 84484; 85025; 71046; 99285; 96374; 96361 ×2; J1885

== ENCOUNTER 2019-09-13 01:50 | Emergency (ER) | payer OTHER ==
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
[2019-09-13] MEDS ORDERED: LORazepam 2 MG/ML INJ IV STA (02:18)
[2019-09-13 02:34] LABS: Basophils # (A) 0.1 k/uL (0-0.2); Basophils % (A) 1 %; Eosinophils # (A) 0.5 k/uL (0-0.7); Eosinophils % (A) 4 %; HCT 54.6 % (39.0-53.0); HGB 17.7 gm/dL (13.0-17.5); Lymphocytes # (A) 2.6 k/uL (1.0-4.8); Lymphocytes % (A) 24 %; MCH 29.1 pg (25.0-35.0); MCHC 32.4 g/dL (31.0-37.0); Mean Platelet Volume 8.5; Monocytes # (A) 0.6 k/uL (0-1.0); Monocytes % (A) 6 %; Neutrophils # (A) 6.8 k/uL (1.3-7.7); Neutrophils % (A) 63 %; Platelet Count 209 k/uL (150-450); RBC 6.06 m/uL (4.30-5.90); RDW 12.8 % (11.5-15.5); WBC 10.7 k/uL (3.8-10.6)
[2019-09-13 02:42] LABS: ALT 50 U/L (4-49); AST 52 U/L (17-59); African American GFR (CKD) >90 (>60 ml/min/1.73 sqM); Albumin 4.7 g/dL (3.5-5.0); Alkaline Phosphatase 70 U/L (38-126); Anion Gap 10 mmol/L; Blood Urea Nitrogen 8 mg/dL (9-20); Carbon Dioxide 24 mmol/L (22-30); Chloride 101 mmol/L (98-107); Glucose 272 mg/dL (74-99); Magnesium 1.7 mg/dL (1.6-2.3); Non-African American GFR(CKD) >90 (>60 ml/min/1.73 sqM); Sodium 135 mmol/L (137-145); Total Protein 7.8 g/dL (6.3-8.2)
[2019-09-13 02:44] LABS: INR 0.9 (<1.2); Partial Thromboplastin Time 23.9 sec (22.0-30.0); Prothrombin Time 9.9 sec (9.0-12.0)
--- NOTE | 2019-09-13 03:01 | XR ---
EXAMINATION TYPE: XR chest 2V DATE OF EXAM: 09/13/2019 COMPARISON: NONE HISTORY: Chest pain TECHNIQUE: 2 views FINDINGS: Heart and mediastinum are normal. Lungs are clear. Diaphragm is normal. Bony thorax appears normal. IMPRESSION: Normal chest. Normal heart.
[2019-09-13 03:35] LABS: Potassium 4.7 mmol/L (3.5-5.1)
[2019-09-13 03:52] VITALS: BP 134/96; PULSE 90; RESP 16; TEMP 97
== END 2019-09-13 03:52 | disposition home or self-care (01) ==
LOC: EC 01:50
DX: E11.65 Type 2 diabetes mellitus with hyperglycemia (principal); F14.988 Cocaine use, unspecified with other cocaine-induced disorder; R07.89 Other chest pain; E78.5 Hyperlipidemia, unspecified; F41.9 Anxiety disorder, unspecified; F17.200 Nicotine dependence, unspecified, uncomplicated; I10 Essential (primary) hypertension; Z79.899 Other long term (current) drug therapy; Z79.4 Long term (current) use of insulin; Z86.73 Personal history of transient ischemic attack (TIA), and cerebral infarction without residual deficits
CPT/HCPCS: 36415; 93005; 80053; 83735; 84484; 85025; 85610; 85730; 71046; 99285; 96374; J2060

== ENCOUNTER 2019-10-09 00:58 | Emergency (ER) | payer OTHER ==
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
[2019-10-09 02:52] LABS: Basophils # (A) 0.1 k/uL (0-0.2); Basophils % (A) 1 %; Eosinophils # (A) 0.7 k/uL (0-0.7); Eosinophils % (A) 5 %; HCT 49.3 % (39.0-53.0); HGB 16.5 gm/dL (13.0-17.5); Lymphocytes # (A) 2.9 k/uL (1.0-4.8); Lymphocytes % (A) 20 %; MCH 29.2 pg (25.0-35.0); MCHC 33.5 g/dL (31.0-37.0); MCV 87.2 fL (80.0-100.0); Mean Platelet Volume 8.1; Monocytes # (A) 0.7 k/uL (0-1.0); Monocytes % (A) 5 %; Neutrophils # (A) 9.6 k/uL (1.3-7.7); Neutrophils % (A) 67 %; Platelet Count 229 k/uL (150-450); RBC 5.65 m/uL (4.30-5.90); RDW 12.8 % (11.5-15.5); WBC 14.3 k/uL (3.8-10.6)
[2019-10-09 03:08] LABS: ALT 47 U/L (4-49); AST 35 U/L (17-59); African American GFR (CKD) >90 (>60 ml/min/1.73 sqM); Albumin 3.9 g/dL (3.5-5.0); Alkaline Phosphatase 79 U/L (38-126); Anion Gap 9 mmol/L; Blood Urea Nitrogen 13 mg/dL (9-20); Calcium 9.4 mg/dL (8.4-10.2); Carbon Dioxide 23 mmol/L (22-30); Chloride 102 mmol/L (98-107); Glucose 307 mg/dL (74-99); Non-African American GFR(CKD) >90 (>60 ml/min/1.73 sqM); Potassium 4.2 mmol/L (3.5-5.1); Sodium 134 mmol/L (137-145); Total Bilirubin 0.6 mg/dL (0.2-1.3); Total Protein 6.6 g/dL (6.3-8.2)
[2019-10-09] MEDS ORDERED: INSULIN ASPART (NovoLOG) 100 UNIT/ML VIAL SQ STA (03:25)
[2019-10-09 03:37] VITALS: BP 135/93; PULSE 94; RESP 16; TEMP 98.1
== END 2019-10-09 03:37 | disposition home or self-care (01) ==
LOC: EC 00:58
DX: S09.90XA Unspecified injury of head, initial encounter (principal); E11.65 Type 2 diabetes mellitus with hyperglycemia; I10 Essential (primary) hypertension; E78.5 Hyperlipidemia, unspecified; F17.200 Nicotine dependence, unspecified, uncomplicated; Z79.4 Long term (current) use of insulin; Z79.899 Other long term (current) drug therapy; Z86.73 Personal history of transient ischemic attack (TIA), and cerebral infarction without residual deficits; V89.2XXA Person injured in unspecified motor-vehicle accident, traffic, initial encounter; Y92.410 Unspecified street and highway as the place of occurrence of the external cause
CPT/HCPCS: 36415; 70450; 72125; 80053; 85025; 99284

== ENCOUNTER → 2020-04-21 | Outpatient (CLI) | payer OTHER ==
--- NOTE | 2020-04-21 15:39 | US ---
EXAMINATION TYPE: US venous doppler duplex LE RT DATE OF EXAM: 04/21/2020 3:31 PM COMPARISON: NONE CLINICAL HISTORY: M79.661 Pain in Rt lower calf. SIDE PERFORMED: Right TECHNIQUE: The lower extremity deep venous system is examined utilizing real time linear array sonog stefania with graded compression, doppler sonography and color-flow sonography. VESSELS IMAGED: Common Femoral Vein Deep Femoral Vein Greater Saphenous Vein * Femoral Vein Popliteal Vein Small Saphenous Vein * Proximal Calf Veins (* superficial vessels) Right Leg: Negative for DVT Patients palpable at right calf scanned, no obvious mass, cyst or fluid collection. IMPRESSION: 1. Right lower extremity ultrasound negative venous thrombosis. 2. No ultrasound abnormality at the level of the palpable region within the right calf.
== END ==
LOC: RADUSWWP 14:58
PROVIDERS: ATTEND Family Medicine
DX: M79.661 Pain in right lower leg (principal)

== ENCOUNTER → 2020-05-08 | Outpatient (CLI) | payer OTHER ==
--- NOTE | 2020-05-09 00:19 | MR ---
EXAMINATION TYPE: MR tib fib RT wo/w con DATE OF EXAM: 05/08/2020 COMPARISON: None HISTORY: Mass of right proximal medial/posterior calf, pain for 3 months. Marker placed CONTRAST: Standard multiplanar, multisequence MRI departmental protocol utilizing 11.5 mL intravenous Gadavist gadolinium contrast. The tibia and fibula appear intact. There is no evidence of bone edema. I see no fracture line. The size of muscle bundles of the left and right calf are fairly symmetric. There is no evidence of a soft tissue mass. There is mild enhancement of the medial gastrocnemius muscle on the contrast image s in the area of concern. Specifically there is no discrete mass identified. The proton density image s show mild subcutaneous edema on the medial aspect of the right calf compared to the left. I see no bony destructive process. There is no pathologic discrete fluid collection. IMPRESSION: Muscle enhancement on the medial aspect of the right calf in the gastrocnemius muscle could relate to some myositis. No discrete mass. Mild subcutaneous edema.
== END | disposition home or self-care (01) ==
LOC: RADMRIMAIN 20:23
PROVIDERS: ATTEND Nurse Practitioner Family
DX: R22.41 Localized swelling, mass and lump, right lower limb (principal)
CPT/HCPCS: 73720; A9585

== ENCOUNTER 2021-01-02 23:20 | Emergency (ER) | payer OTHER ==
[2021-01-02 23:33] VITALS: BP 117/89; PULSE 110; RESP 20; TEMP 98.2
--- NOTE | 2021-01-03 00:28 | US ---
EXAMINATION TYPE: US venous doppler duplex LE RT DATE OF EXAM: 01/03/2021 12:16 AM COMPARISON: US 2020 CLINICAL HISTORY: rule out dvt. Right calf pain SIDE PERFORMED: Right TECHNIQUE: The lower extremity deep venous system is examined utilizing real time linear array sonog stefania with graded compression, doppler sonography and color-flow sonography. VESSELS IMAGED: Common Femoral Vein Deep Femoral Vein Greater Saphenous Vein * Femoral Vein Popliteal Vein Small Saphenous Vein * Proximal Calf Veins (* superficial vessels) Right Leg: Appears negative for DVT Right calf area of pain: no obvious mass, fluid collection or SVT seen IMPRESSION: No evidence of deep vein thrombosis in the right leg.
--- NOTE | 2021-01-03 00:52 | ED ---
Extremity Problem HPI - General Chief complaint: Extremity Problem,Nontraumatic Stated complaint: RT leg swelling, sent by dr Time Seen by Provider: 01/03/21 00:49 Source: patient, RN notes reviewed, old records reviewed Mode of arrival: ambulatory Limitations: no limitations - History of Present Illness Initial comments: This is a 50-year-old male DF for evaluation. 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 Increasing swelling. No redness no warmth. No fevers. No trauma. No history of gout. Patient states he is increased right leg pain and swelling. Patient was seen by outside physician purchasing assistant here for evaluation and possible DVT. No chest pain or shortness of breath MD Complaint: extremity pain, extremity swelling, joint pain -: days(s) Location: right, lower extremity -: Yes myalgia, Yes arthralgia Radiation: none Severity scale (1-10): 5 Quality: aching Consistency: constant Improves with: nothing Worsens with: nothing Associated Symptoms: denies other symptoms - Related Data Home Medications Medication Instructions Recorded Confirmed Dextroamphetamine/Amphetamine 20 mg PO TID 08/08/19 08/08/19 [Adderall] INSULIN LISPRO (humaLOG) [humaLOG] See Protocol SQ AC-TID 08/08/19 08/08/19 Insulin Glargine,Hum.rec.anlog 60 unit SQ QAM 08/08/19 08/08/19 [Basaglar Kwikpen U-100] Omeprazole [PriLOSEC] 40 mg PO DAILY 08/08/19 08/08/19 Simvastatin [Zocor] 20 mg PO HS 08/08/19 08/08/19 amLODIPine [Norvasc] 5 mg PO DAILY 08/08/19 08/08/19 lisinopriL [Zestril] 20 mg PO DAILY 08/08/19 08/08/19 Previous Rx's Medication Instructions Recorded diazePAM [Valium] 5 mg PO TID PRN 3 Days #9 tab 08/27/19 metFORMIN HCL [Glucophage] 500 mg PO BID #60 tab 08/27/19 Allergies Allergy/AdvReac Type Severity Reaction Status Date / Time No Known Allergies Allergy Verified 01/02/21 23:34 Review of Systems ROS Statement: Those systems with pertinent positive or pertinent negative responses have been documented in the HPI. ROS Other: All systems not noted in ROS Statement are negative. Past Medical History Past Medical History: CVA/TIA, Diabetes Mellitus, Hyperlipidemia, Hypertension History of Any Multi-Drug Resistant Organisms: None Reported Past Surgical History: Joint Replacement Additional Past Surgical History / Comment(s): Stent placed in groin Past Psychological History: Anxiety, Bipolar, Depression Smoking Status: Current every day smoker Past Alcohol Use History: Occasional Past Drug Use History: Cocaine, Marijuana General Exam Limitations: no limitations General appearance: alert, in no apparent distress Head exam: Present: atraumatic, normocephalic, normal inspection Eye exam: Present: normal appearance, PERRL, EOMI. Absent: scleral icterus, conjunctival injection, periorbital swelling ENT exam: Present: normal exam, mucous membranes moist Neck exam: Present: normal inspection. Absent: tenderness, meningismus, lymphadenopathy Respiratory exam: Present: normal lung sounds bilaterally. Absent: respiratory distress, wheezes, rales, rhonchi, stridor Cardiovascular Exam: Present: normal rhythm, tachycardia, normal heart sounds. Absent: systolic murmur, diastolic murmur, rubs, gallop, clicks GI/Abdominal exam: Present: soft, normal bowel sounds. Absent: distended, tenderness, guarding, rebound, rigid Extremities exam: Present: normal inspection, full ROM, tenderness (Right ankle tenderness), normal capillary refill, pedal edema, calf tenderness. Absent: joint swelling Back exam: Present: normal inspection Neurological exam: Present: alert, oriented X3, CN II-XII intact Psychiatric exam: Present: normal affect, normal mood Skin exam: Present: warm, dry, intact, normal color. Absent: rash Course Vital Signs 01/02/21 23:31 Temperature 98.2 F Pulse Rate 110 H Respiratory 20 Rate Blood Pressure 117/89 O2 Sat by Pulse 95 Oximetry - Reevaluation(s) Reevaluation #1: 01/03/21 04:29 Medical record is reviewed Reevaluation #2: 01/03/21 04:29 Symptoms are improved Reevaluation #3: 01/03/21 04:29 Patient informed of results and questions answered Medical Decision Making - Medical Decision Making 50 male for rule out of DVT. Patient informed of negative results and patient can be discharged home - Radiology Data Radiology results: report reviewed (Ultrasound right lower extremity negative for DVT), image reviewed Disposition Clinical Impression: Right leg pain Disposition: HOME SELF-CARE Condition: Good Instructions (If sedation given, give patient instructions): Leg Pain (ED) Is patient prescribed a controlled substance at d/c from ED?: No Referrals: Mariam Jorge MD [Primary Care Provider] - 1-2 days
== END 2021-01-03 01:12 | disposition home or self-care (01) ==
LOC: EC 23:20
DX: M25.571 Pain in right ankle and joints of right foot (principal); E11.9 Type 2 diabetes mellitus without complications; I10 Essential (primary) hypertension; E78.5 Hyperlipidemia, unspecified; F31.9 Bipolar disorder, unspecified; F41.9 Anxiety disorder, unspecified; F17.200 Nicotine dependence, unspecified, uncomplicated; F12.90 Cannabis use, unspecified, uncomplicated; F14.90 Cocaine use, unspecified, uncomplicated; Z79.4 Long term (current) use of insulin; Z79.84 Long term (current) use of oral hypoglycemic drugs; Z79.899 Other long term (current) drug therapy
CPT/HCPCS: 99283

== ENCOUNTER 2021-05-20 07:40 | Day surgery (SDC) | payer OTHER ==
[2021-05-18 10:10] VITALS: BMI 43.0
[~2021-05-20 07:40] MED LIST: LACTATED RINGERS 1,000 ML IV SCH; LIDOCAINE 1% (10MG/ML) FOR IV START INTRADERMA PRN
[2021-05-20 09:48] VITALS: RESP 16; TEMP 97.4
[2021-05-20 09:55] LABS: Glucose,Whole Blood 93 mg/dL (75-99)
[2021-05-20] MEDS ORDERED: PROPOFOL 10 MG/ML 20 ML VIAL IV ONE (11:16)
--- NOTE | 2021-05-20 11:19 | P.GSHP ---
History of Present Illness H&P Date: 05/20/21 Chief Complaint: Screening colonoscopy Subjective 51-year-old male presents today for screening colonoscopy. Patient denies any significant GI complaints. Past Medical History Past Medical History: CVA/TIA, Diabetes Mellitus, Hyperlipidemia, Hypertension, Sleep Apnea/CPAP/BIPAP Additional Past Medical History / Comment(s): unsure of cva/tia., uses c-pap machine , states positive cologard test. History of Any Multi-Drug Resistant Organisms: None Reported Past Surgical History: Orthopedic Surgery Additional Past Surgical History / Comment(s): Stent or port placed in groin-pt [facility]ure ([facility] after ?cva)., repair right ankle fx with screws & plates. Past Anesthesia/Blood Transfusion Reactions: No Reported Reaction Past Psychological History: ADD/ADHD, Anxiety, Bipolar, Depression Smoking Status: Current every day smoker, Heavy tobacco smoker Past Alcohol Use History: None Reported Additional Past Alcohol Use History / Comment(s): smokes 1 1/2 ppd, started smoking age 16, quit for 8-10 years. Past Drug Use History: Cocaine, Marijuana Additional Drug Use History / Comment(s): no current use. - Past Family History Mother Family Medical History: No Reported History Medications and Allergies Home Medications Medication Instructions Recorded Confirmed Type Simvastatin [Zocor] 20 mg PO HS 08/08/19 05/20/21 History amLODIPine [Norvasc] 5 mg PO DAILY 08/08/19 05/20/21 History Lisinopril [Zestril] 10 mg PO DAILY 05/18/21 05/20/21 History Omeprazole 20 mg PO DAILY 05/18/21 05/20/21 History Pioglitazone [Actos] 30 mg PO DAILY 05/18/21 05/20/21 History Trulicity (Unknown Dose) 1 dose SQ WEEKLY 05/18/21 05/20/21 History glipiZIDE [Glucotrol] 10 mg PO AC-BRKFST 05/18/21 05/20/21 History metFORMIN HCL [Glucophage] 1,000 mg PO BID 05/18/21 05/20/21 History Allergies Allergy/AdvReac Type Severity Reaction Status Date / Time tuberculin,PPD,multi-puncture Allergy Unknown Unknown Verified 05/20/21 09:50 Surgical - Exam Vital Signs Temp Pulse Resp BP Pulse Ox 97.4 F L 84 16 132/80 94 L 05/20/21 09:38 05/20/21 09:38 05/20/21 09:38 05/20/21 09:38 05/20/21 09:38 - General well developed, well nourished, no distress - Eyes PERRL - ENT normal pinna - Neck no masses - Respiratory normal expansion - Cardiovascular Rhythm: regular - Abdomen Abdomen: soft, non tender Assessment and Plan Assessment: We'll perform screening colonoscopy.
--- NOTE | 2021-05-20 11:27 | P.OP ---
Date of Procedure: 05/20/21 Preoperative Diagnosis: Screening colonoscopy Postoperative Diagnosis: Normal colonoscopy Procedure(s) Performed: Colonoscopy Anesthesia: MAC Surgeon: Sharath Huerta Pathology: none sent Condition: stable Disposition: PACU Description of Procedure: PROCEDURE: The patient was placed on the endoscopy table in the lateral position. Digital rectal examination was performed which revealed no abnormalities. The prostate was symmetrical without nodules. Flexible colonoscope was then placed in the patient's anus and passed throughout the entire colon. The ileocecal valve was visualized. The cecum, ascending, transverse, descending and sigmoid colon were normal. The rectum was normal as well. There were no masses, polyps or diverticula noted in the entire colon. SUMMARY OF FINDINGS: Normal colonoscopy.
[2021-05-20 11:57] VITALS: BP 118/82; PULSE 74
== END 2021-05-20 12:10 | disposition home or self-care (01) ==
LOC: ORWHC2ENDO 07:40
PROVIDERS: ATTEND Surgery
DX: Z12.11 Encounter for screening for malignant neoplasm of colon (principal); E11.9 Type 2 diabetes mellitus without complications; E78.5 Hyperlipidemia, unspecified; I10 Essential (primary) hypertension; G47.30 Sleep apnea, unspecified; F41.9 Anxiety disorder, unspecified; F32.A Depression, unspecified; Z86.73 Personal history of transient ischemic attack (TIA), and cerebral infarction without residual deficits; Z79.84 Long term (current) use of oral hypoglycemic drugs; Z79.899 Other long term (current) drug therapy; Z88.8 Allergy status to other drugs, medicaments and biological substances
CPT/HCPCS: G0121; J2704

== ENCOUNTER → 2021-08-19 | Outpatient (CLI) | payer OTHER ==
--- NOTE | 2021-08-19 10:57 | US ---
EXAMINATION TYPE: US venous doppler duplex LE LT DATE OF EXAM: 08/19/2021 10:41 AM COMPARISON: US CLINICAL HISTORY: M79.662 PAIN IN LT CALF. Pain left calf SIDE PERFORMED: Left TECHNIQUE: The lower extremity deep venous system is examined utilizing real time linear array sonog stefania with graded compression, doppler sonography and color-flow sonography. VESSELS IMAGED: Common Femoral Vein Deep Femoral Vein Greater Saphenous Vein * Femoral Vein Popliteal Vein Small Saphenous Vein * Proximal Calf Veins (* superficial vessels) Left Leg: Negative for DVT Called results to MIKE Mai at 's office at time of exam IMPRESSION: No evidence of DVT at this time.
== END | disposition home or self-care (01) ==
LOC: RADUSWWP 10:17
PROVIDERS: ATTEND Family Medicine
DX: M79.662 Pain in left lower leg (principal)

== ENCOUNTER → 2022-01-25 | Outpatient (CLI) | payer OTHER ==
--- NOTE | 2022-01-26 14:31 | MR ---
EXAMINATION TYPE: MR tib fib RT wo/w con DATE OF EXAM: 01/25/2022 COMPARISON: 05/08/2020 HISTORY: 51-year-old male RT LEG MID CALF MASS, PAIN, SWELLING X 4 MTHS Technique: Multiplanar, multisequence images of the right tibia/fibula were obtained before and after administration of 12.5 mL intravenous Gadavist gadolinium contrast. Coronal images of the contralat eral side were included for comparison purposes. FINDINGS: There is redemonstration of fairly intense edema involving the inferior muscle belly of the medial ga strocnemius. There is extensive overlying subcutaneous soft tissue swelling extending throughout the entire leg and a 4 mm thick fluid overlying the superficial fascia here. There may be minimal edema a long the adjacent deeper fascial plane as well. The overlying subcutaneous soft tissue swelling has increased. Overall muscle edema is similar. There is corresponding postcontrast enhancement in the region of edema. The underlying bony structures show no abnormal signal. There is metal artifact at the ankle suggesting prior internal fixation. IMPRESSION: Recurrence of moderate to intense edema involving the inferior muscle belly of the right medial gastr ocnemius. Corresponding postcontrast enhancement. Platelike fluid along the overlying superficial mus cular fascia and associated subcutaneous soft tissue swelling has increased compared to 05/08/2020. The re may be minimal fluid along the deeper fascial plane just adjacent as well. No well-defined mass is seen. Consider further evaluation with muscle biopsy to exclude an inflammatory myositis. Cellulitis and contiguous infectious myositis is also a consideration.
== END | disposition home or self-care (01) ==
LOC: RADMRIMAIN 09:06
PROVIDERS: ATTEND Nurse Practitioner Family
DX: S86.111A Strain of other muscle(s) and tendon(s) of posterior muscle group at lower leg level, right leg, initial encounter (principal); R22.41 Localized swelling, mass and lump, right lower limb

== ENCOUNTER 2023-02-05 21:31 | Emergency (ER) | payer OTHER ==
[2023-02-05] MEDS ORDERED: CEPHALEXIN 500 MG CAP PO STA (22:05)
[2023-02-05] MEDS ORDERED: SULFAMETHOX-TMP 800-160MG 1 EACH TAB PO STA (22:05)
--- NOTE | 2023-02-05 22:05 | ED ---
Skin/Abscess/FB HPI - General Chief complaint: Skin/Abscess/Foreign Body Stated complaint: Body aches, Infection right leg Time Seen by Provider: 02/05/23 21:41 Source: patient Mode of arrival: ambulatory Limitations: no limitations - History of Present Illness Initial comments: 52-year-old male presenting with chief complaint of infection to the right groin ongoing for the last week. Patient states that it started out as a boil, he has been using and numbing cream over it and believes that it has grown in size. He states that he has not had any drainage from the area. 3 days ago he was starting to experience body aches and feels generally unwell which prompted him to seek evaluation. No fevers or chills. Denies any red streaking up the leg. No nausea or vomiting. No abdominal pain. No numbness or tingling. No previous antibiotic treatment. - Related Data Home Medications Medication Instructions Recorded Confirmed Simvastatin [Zocor] 20 mg PO HS 08/08/19 05/20/21 amLODIPine [Norvasc] 5 mg PO DAILY 08/08/19 05/20/21 Omeprazole 20 mg PO DAILY 05/18/21 05/20/21 Pioglitazone [Actos] 30 mg PO DAILY 05/18/21 05/20/21 Trulicity (Unknown Dose) 1 dose SQ WEEKLY 05/18/21 05/20/21 glipiZIDE [Glucotrol] 10 mg PO AC-BRKFST 05/18/21 05/20/21 lisinopriL [Zestril] 10 mg PO DAILY 05/18/21 05/20/21 metFORMIN HCL [Glucophage] 1,000 mg PO BID 05/18/21 05/20/21 Previous Rx's Medication Instructions Recorded Cephalexin [Keflex] 500 mg PO Q6HR 7 Days #28 cap 02/05/23 Sulfamethox-Tmp 800-160Mg [Bactrim 1 tab PO Q12HR 7 Days #14 tab 02/05/23 DS 800-160 mg] Allergies Allergy/AdvReac Type Severity Reaction Status Date / Time tuberculin,PPD,multi-puncture Allergy Unknown Unknown Verified 05/20/21 09:50 Review of Systems ROS Statement: Those systems with pertinent positive or pertinent negative responses have been documented in the HPI. ROS Other: All systems not noted in ROS Statement are negative. Past Medical History Past Medical History: CVA/TIA, Diabetes Mellitus, Hyperlipidemia, Hypertension History of Any Multi-Drug Resistant Organisms: None Reported Past Surgical History: Joint Replacement Additional Past Surgical History / Comment(s): Stent placed in groin Past Psychological History: Anxiety, Bipolar, Depression Smoking Status: Current every day smoker Past Alcohol Use History: Occasional General Exam Limitations: no limitations General appearance: alert, in no apparent distress Head exam: Present: atraumatic, normocephalic Eye exam: Present: normal appearance Neck exam: Present: normal inspection Respiratory exam: Present: normal lung sounds bilaterally. Absent: respiratory distress, wheezes, rales, rhonchi, stridor Cardiovascular Exam: Present: regular rate, normal rhythm, normal heart sounds. Absent: systolic murmur, diastolic murmur, rubs, gallop, clicks Neurological exam: Present: alert, oriented X3 Psychiatric exam: Present: normal affect, normal mood Skin exam: Present: erythema (There is an area of erythema and induration to the right groin, measuring a 3 x 4 cm, no fluctuance and no perirectal involvement.) Course Vital Signs 02/05/23 02/05/23 21:33 22:24 Temperature 98.3 F 98.4 F Pulse Rate 108 H 78 Respiratory 18 16 Rate Blood Pressure 136/84 135/84 O2 Sat by Pulse 96 99 Oximetry Medical Decision Making - Medical Decision Making Was pt. sent in by a medical professional or institution (WARREN Jeffrey, TRANSPLANTER, urgent care, hospital, or half-way...) When possible be specific @ -No Did you speak to anyone other than the patient for history (EMS, parent, family, police, friend...)? What history was obtained from this source @ -No Did you review nursing and triage notes (agree or disagree)? Why? @ -I reviewed and agree with nursing and triage notes Were old charts reviewed (outside hosp., previous admission, EMS record, old EKG, old radiological studies, urgent care reports/EKG's, half-way records)? Report findings @ -No old charts were reviewed Differential Diagnosis (chest pain, altered mental status, abdominal pain women, abdominal pain men, vaginal bleeding, weakness, fever, dyspnea, syncope, headache, dizziness, GI bleed, back pain, seizure, CVA, palpatations, mental health, musculoskeletal)? @ -Differential includes cellulitis, abscess, ALLERGIC reaction, this is not an all inclusive list EKG interpreted by me (3pts min.). @ -As above X-rays interpreted by me (1pt min.). @ -None done CT interpreted by me (1pt min.). @ -None done U/S interpreted by me (1pt. min.). @ -None done What testing was considered but not performed or refused? (CT, X-rays, U/S, labs)? Why? @ -None What meds were considered but not given or refused? Why? @ -None Did you discuss the management of the patient with other professionals (professionals i.e. Dr., PA, TRANSPLANTER, lab, RT, psych nurse, director social welfare, pension administrator, teacher, department of natural resources officer, medical case worker)? Give summary @ -No Was smoking cessation discussed for >3mins.? @ -No Was critical care preformed (if so, how long)? @ -No Were there social determinants of health that impacted care today? How? (Homelessness, low income, unemployed, alcoholism, drug addiction, transportation, low edu. Level, literacy, decrease access to med. care, [facility], rehab)? @ -No Was there de-escalation of care discussed even if they declined (Discuss DNR or withdrawal of care, Hospice)? DNR status @ -No What co-morbidities impacted this encounter? (DM, HTN, Smoking, COPD, CAD, Cancer, CVA, ARF, Chemo, Hep., AIDS, mental health diagnosis, sleep apnea, morbid obesity)? @ -None Was patient admitted / discharged? Hospital course, mention meds given and route, prescriptions, significant lab abnormalities, going to OR and other pertinent info. @ -52-year-old male presenting with chief complaint of feeling fatigued and experiencing body aches, he believes it is related to an infection to the right groin. This started as a boil initially but now has increased in size. Patient has not been on any antibiotic treatment. On examination there is a 3 x 4cm area of redness and induration, no evidence of red streaking. This does not appear to be drainable. Patient will be started on Keflex and Bactrim. He is educated on using warm compresses. Educated on alarms symptoms. Follow-up with PCP. Report back to ER with any new or worsening symptoms. Discussed return parameters and answered all questions. Patient conveyed verbal understanding and agreed to the plan. I discussed this case in detail with my attending Dr. Mooney Undiagnosed new problem with uncertain prognosis? @ -No Drug Therapy requiring intensive monitoring for toxicity (Heparin, Nitro, Insulin, Cardizem)? @ -No Were any procedures done? @ -No Diagnosis/symptom? @ -Abscess Acute, or Chronic, or Acute on Chronic? @ -Acute Uncomplicated (without systemic symptoms) or Complicated (systemic symptoms)? @ -Uncomplicated Side effects of treatment? @ -No Exacerbation, Progression, or Severe Exacerbation? @ -No Poses a threat to life or bodily function? How? (Chest pain, [place], [place], pneumonia, PE, COPD, DKA, ARF, appy, cholecystitis, CVA, Diverticulitis, Homicidal, Suicidal, threat to staff... and all critical care pts) @ -No Disposition Clinical Impression: Abscess Disposition: HOME SELF-CARE Condition: Good Instructions (If sedation given, give patient instructions): Abscess (ED) Additional Instructions: Follow-up with PCP. Report back to ER with any new or worsening symptoms. Take medication as prescribed. Prescriptions: Sulfamethox-Tmp 800-160Mg [Bactrim DS 800-160 mg] 1 tab PO Q12HR 7 Days #14 tab Cephalexin [Keflex] 500 mg PO Q6HR 7 Days #28 cap Is patient prescribed a controlled substance at d/c from ED?: No Referrals: Mariam Jorge MD [Primary Care Provider] - 1-2 days Time of Disposition: 22:05
[2023-02-05 22:37] VITALS: BP 135/84; PULSE 78; RESP 16; TEMP 98.4
== END 2023-02-05 22:36 | disposition home or self-care (01) ==
LOC: EC 21:31
DX: L02.214 Cutaneous abscess of groin (principal); E11.9 Type 2 diabetes mellitus without complications; I10 Essential (primary) hypertension; E78.5 Hyperlipidemia, unspecified; F17.200 Nicotine dependence, unspecified, uncomplicated; Z79.84 Long term (current) use of oral hypoglycemic drugs; Z79.85 Long-term (current) use of injectable non-insulin antidiabetic drugs; Z79.899 Other long term (current) drug therapy; Z88.7 Allergy status to serum and vaccine
CPT/HCPCS: 99282

== ENCOUNTER → 2023-07-06 | Outpatient (CLI) | payer OTHER ==
--- NOTE | 2023-07-06 19:02 | US ---
EXAMINATION TYPE: US extremity nonvasc mass LT DATE OF EXAM: 07/06/2023 COMPARISON: NONE CLINICAL INDICATION: Male, 53 years old with history of R22.9 SWELLING,MASS AND LUMP; Lump left poste romedial mid calf x few years, changes in size TECHNIQUE: FINDINGS: ? fluid noted; otherwise no abnormalities seen. IMPRESSION: 1. No discrete mass within the calf in the area of concern. Some edema may be present. Correlate with the patient's history.
== END | disposition home or self-care (01) ==
LOC: RADUSWWP 09:49
PROVIDERS: ATTEND Family Medicine
DX: R22.42 Localized swelling, mass and lump, left lower limb (principal)

== ENCOUNTER 2023-12-06 17:52 | Inpatient (IN) | payer OTHER ==
--- NOTE | 2023-12-06 18:37 | ED ---
General Adult HPI - General Chief complaint: Skin/Abscess/Foreign Body Stated complaint: post op issues/not able to stop shaking Time Seen by Provider: 12/06/23 18:07 Source: patient Mode of arrival: wheelchair Limitations: no limitations - History of Present Illness Initial comments: Dictation was produced using [employer] dictation software. please excuse any grammatical, word or spelling errors. Chief Complaint: 53-year-old male shaking chills History of Present Illness: Patient is 53-year-old male presents with shaking chills. For the last 3 days she has had an abscess to his right inner thigh. He went to see his vascular surgeon referred him to a general surgeon. They performed an I&D in the office earlier this morning. Patient states he has been feeling fine until an hour after he got home started to feel chills. Patient denies any cough runny nose or sore throat. States that his leg feels better after the procedure. The ROS documented in this emergency department record has been reviewed and confirmed by me. Those systems with pertinent positive or negative responses have been documented in the HPI. All other systems are other negative and/or noncontributory. - Related Data Home Medications Medication Instructions Recorded Confirmed amLODIPine [Norvasc] 5 mg PO DAILY 08/08/19 12/06/23 Pioglitazone [Actos] 30 mg PO DAILY 05/18/21 12/06/23 metFORMIN HCL [Glucophage] 1,000 mg PO BID 05/18/21 12/06/23 Cholecalciferol (Vitamin D3) 50 mcg PO DAILY 12/06/23 12/06/23 [Vitamin D3 (50 Mcg = 2000 Iu)] Dulaglutide [Trulicity] 0.75 mg SQ WE 12/06/23 12/06/23 Rosuvastatin [Crestor] 10 mg PO DAILY 12/06/23 12/06/23 lisinopriL [Zestril] 20 mg PO DAILY 12/06/23 12/06/23 Allergies Allergy/AdvReac Type Severity Reaction Status Date / Time tuberculin,PPD,multi-puncture Allergy Unknown Unknown Verified 12/06/23 19:37 Review of Systems ROS Statement: Those systems with pertinent positive or pertinent negative responses have been documented in the HPI. ROS Other: All systems not noted in ROS Statement are negative. Past Medical History Past Medical History: CVA/TIA, Diabetes Mellitus, Hyperlipidemia, Hypertension History of Any Multi-Drug Resistant Organisms: None Reported Past Surgical History: Joint Replacement Additional Past Surgical History / Comment(s): Stent placed in groin Past Psychological History: Anxiety, Bipolar, Depression Smoking Status: Current every day smoker Past Alcohol Use History: Occasional Past Drug Use History: None Reported General Exam - General Exam Comments Initial Comments: PHYSICAL EXAM: General Impression: Alert and oriented x3, not in acute distress HEENT: Normocephalic atraumatic, extra-ocular movements intact, pupils equal and reactive to light bilaterally, mucous membranes moist. Cardiovascular: Heart regular rate and rhythm Chest: Able to complete full sentences, no retractions, no tachypnea Abdomen: abdomen soft, non-tender, non-distended, no organomegaly Musculoskeletal: Pulses present and equal in all extremities, no peripheral edema Motor: no focal deficits noted Neurological: CN II-XII grossly intact, no focal motor or sensory deficits noted Skin: Intact with no visualized rashes, right thigh dressing clean dry and intact Psych: Normal affect and mood Limitations: no limitations Course Vital Signs 12/06/23 12/06/23 12/06/23 17:58 18:01 18:22 Temperature 99.4 F 100.8 F H Pulse Rate 124 H 115 H Respiratory 20 24 22 Rate Blood Pressure 98/71 169/103 O2 Sat by Pulse 96 96 Oximetry EKG Findings - EKG Comments: EKG Findings:: My EKG interpretation: Ventricular rate 108, sinus tachycardia,. 160, QRS 97, QTc 35. No SC prolongation, no QTC prolongation, no ST or T-wave changes noted. Overall, this EKG is unremarkable Medical Decision Making - Medical Decision Making Was pt. sent in by a medical professional or institution (, PA, FIELD OPERATOR, urgent care, hospital, or correction...) When possible be specific @ -No Did you speak to anyone other than the patient for history (EMS, parent, family, police, friend...)? What history was obtained from this source @ -No Did you review nursing and triage notes (agree or disagree)? Why? @ -I reviewed and agree with nursing and triage notes Were old charts reviewed (outside hosp., previous admission, EMS record, old EKG, old radiological studies, urgent care reports/EKG's, correction records)? Report findings @ -No old charts were reviewed Differential Diagnosis (chest pain, altered mental status, abdominal pain women, abdominal pain men, vaginal bleeding, musculoskeletal, weakness, fever, dyspnea, syncope, headache, dizziness, GI bleed, back pain, seizure, CVA, palpatations, mental health)? @ -Differential Fever: Pneumonia, viral URI, endocarditis, myocarditis, pericarditis, otitis, sinusitis, peritonsillar Abscess, retropharyngeal Abscess, epiglottitis, peritonitis, appendicitis, Deborah cystitis, diverticulitis, hepatitis, colitis, UTI, PID, TOA, pyelonephritis, prostatitis, epididymitis, meningitis, encephalit is, pulmonary embolism, CVA, thyroid storm, pancreatitis, adrenal crisis, cavernous sinus thrombosis, this is not meant to be an all-inclusive list. EKG interpreted by me (3pts min.). @ -See above X-rays interpreted by me (1pt min.). @ -X-ray is nonacute CT interpreted by me (1pt min.). @ -None done U/S interpreted by me (1pt. min.). @ -None done What testing was considered but not performed or refused? (CT, X-rays, U/S, labs)? Why? @ -None What meds were considered but not given or refused? Why? @ -None Was smoking cessation discussed for >3mins.? @ -No Were there social determinants of health that impacted care today? How? (Homelessness, low income, unemployed, alcoholism, drug addiction, transportation, low edu. Level, literacy, decrease access to med. care, nursing home, rehab)? @ -No Was there de-escalation of care discussed even if they declined (Discuss DNR or withdrawal of care, Hospice)? DNR status @ -No What co-morbidities impacted this encounter? (DM, HTN, Smoking, COPD, CAD, Cancer, CVA, ARF, Chemo, Hep., AIDS, mental health diagnosis, sleep apnea, morbid obesity)? @ -None Was patient admitted / discharged? Hospital course, mention meds given and route, prescriptions, significant lab abnormalities, going to OR and other pertinent info. @ -83-year-old diabetic male presents emergency department chills postoperatively after he had outpatient I&D and general surgery office. Vital signs upon arrival was low-grade temperature. He did spike a temperature of 100.8 tachycardic. Patient ill-appearing upon arrival he is given some Tian Mab with improvement of his reported symptoms. Labs shows leukocytosis of 14.7. Rest of labs unremarkable. Viral testing negative. X-ray shows no pneumonia. Patient will be admitted for SIRS. No identifiable cause of serious bacterial illness. Patient admitted observation. Consultation to infectious disease Did you discuss the management of the patient with other professionals (professionals i.e. , PA, FIELD OPERATOR, lab, RT, psych nurse, social work job titles, credit charge authorizer, teacher, philanthropy officer, correctional case manager)? Give summary @ -Spoke with hospitalist for admission Was critical care preformed (if so, how long)? @ -No Undiagnosed new problem with uncertain prognosis? @ -No Drug Therapy requiring intensive monitoring for toxicity (Heparin, Nitro, Insulin, Cardizem)? @ -No Were any procedures done? @ -No Diagnosis/symptom? Acute, or Chronic, or Acute on Chronic? Uncomplicated (without systemic symptoms) or Complicated (systemic symptoms)? @ -SIRS Side effects of treatment? @ -No Exacerbation, Progression, or Severe Exacerbation? @ -No Poses a threat to life or bodily function? How? (Chest pain, [place], [place], pneumonia, PE, COPD, DKA, ARF, appy, cholecystitis, CVA, Diverticulitis, Homicidal, Suicidal, threat to staff... and all critical care pts) @ -yes - Lab Data Result diagrams: 12/06/23 18:22 12/06/23 18:22 Lab Results 12/06/23 12/06/23 12/06/23 Range/Units 18:22 18:22 18:22 WBC 14.7 H (3.8-10.6) k/uL RBC 5.16 (4.30-5.90) m/uL Hgb 15.9 (13.0-17.5) gm/dL Hct 46.0 (39.0-53.0) % MCV 89.1 (80.0-100.0) fL MCH 30.8 (25.0-35.0) pg MCHC 34.6 (31.0-37.0) g/dL RDW 12.7 (11.5-15.5) % Plt Count 217 (150-450) k/uL MPV 7.5 Neutrophils % 83 % Lymphocytes % 8 % Monocytes % 5 % Eosinophils % 3 % Basophils % 0 % Neutrophils # 12.2 H (1.3-7.7) k/uL Lymphocytes # 1.2 (1.0-4.8) k/uL Monocytes # 0.8 (0-1.0) k/uL Eosinophils # 0.4 (0-0.7) k/uL Basophils # 0.1 (0-0.2) k/uL Sodium 136 L (137-145) mmol/L Potassium 4.5 (3.5-5.1) mmol/L Chloride 102 (98-107) mmol/L Carbon Dioxide 24 (22-30) mmol/L Anion Gap 10 mmol/L BUN 14 (9-20) mg/dL Creatinine 0.82 (0.66-1.25) mg/dL Est GFR (CKD-EPI)AfAm >90 (>60 ml/min/1.73 sqM) Est GFR (CKD-EPI)NonAf >90 (>60 ml/min/1.73 sqM) Glucose 263 H (74-99) mg/dL Plasma Lactic Acid Jorgito 1.7 (0.7-2.0) mmol/L Calcium 9.2 (8.4-10.2) mg/dL Magnesium 1.7 (1.6-2.3) mg/dL Total Bilirubin 0.9 (0.2-1.3) mg/dL AST 32 (17-59) U/L ALT 35 (4-49) U/L Alkaline Phosphatase 77 (38-126) U/L Total Protein 7.4 (6.3-8.2) g/dL Albumin 4.4 (3.5-5.0) g/dL Urine Color Urine Appearance (Clear) Urine pH (5.0-8.0) Ur Specific [place] (1.001-1.035) Urine Protein (Negative) Urine Glucose (UA) (Negative) Urine Ketones (Negative) Urine Blood (Negative) Urine Nitrite (Negative) Urine Bilirubin (Negative) Urine Urobilinogen (<2.0) mg/dL Ur Leukocyte Esterase (Negative) Influenza Type A (PCR) (Not Detectd) Influenza Type B (PCR) (Not Detectd) RSV (PCR) (Not Detectd) SARS-CoV-2 (PCR) (Not Detectd) 12/06/23 12/06/23 Range/Units 18:22 18:49 WBC (3.8-10.6) k/uL RBC (4.30-5.90) m/uL Hgb (13.0-17.5) gm/dL Hct (39.0-53.0) % MCV (80.0-100.0) fL MCH (25.0-35.0) pg MCHC (31.0-37.0) g/dL RDW (11.5-15.5) % Plt Count (150-450) k/uL MPV Neutrophils % % Lymphocytes % % Monocytes % % Eosinophils % % Basophils % % Neutrophils # (1.3-7.7) k/uL Lymphocytes # (1.0-4.8) k/uL Monocytes # (0-1.0) k/uL Eosinophils # (0-0.7) k/uL Basophils # (0-0.2) k/uL Sodium (137-145) mmol/L Potassium (3.5-5.1) mmol/L Chloride (98-107) mmol/L Carbon Dioxide (22-30) mmol/L Anion Gap mmol/L BUN (9-20) mg/dL Creatinine (0.66-1.25) mg/dL Est GFR (CKD-EPI)AfAm (>60 ml/min/1.73 sqM) Est GFR (CKD-EPI)NonAf (>60 ml/min/1.73 sqM) Glucose (74-99) mg/dL Plasma Lactic Acid Jorgito (0.7-2.0) mmol/L Calcium (8.4-10.2) mg/dL Magnesium (1.6-2.3) mg/dL Total Bilirubin (0.2-1.3) mg/dL AST (17-59) U/L ALT (4-49) U/L Alkaline Phosphatase (38-126) U/L Total Protein (6.3-8.2) g/dL Albumin (3.5-5.0) g/dL Urine Color Colorless Urine Appearance Clear (Clear) Urine pH 5.5 (5.0-8.0) Ur Specific [place] 1.020 (1.001-1.035) Urine Protein Negative (Negative) Urine Glucose (UA) 4+ H (Negative) Urine Ketones Negative (Negative) Urine Blood Negative (Negative) Urine Nitrite Negative (Negative) Urine Bilirubin Negative (Negative) Urine Urobilinogen <2.0 (<2.0) mg/dL Ur Leukocyte Esterase Negative (Negative) Influenza Type A (PCR) Not Detected (Not Detectd) Influenza Type B (PCR) Not Detected (Not Detectd) RSV (PCR) Not Detected (Not Detectd) SARS-CoV-2 (PCR) Not Detected (Not Detectd) Disposition Clinical Impression: SIRS (systemic inflammatory response syndrome) Disposition: ADMITTED IP TO THIS [facility] Condition: Fair Referrals: Mariam Jorge MD [Primary Care Provider] - 1-2 days Decision Time: 20:33
[2023-12-06 18:45] LABS: Basophils # (A) 0.1 k/uL (0-0.2); Basophils % (A) 0 %; Eosinophils # (A) 0.4 k/uL (0-0.7); Eosinophils % (A) 3 %; HGB 15.9 gm/dL (13.0-17.5); Lymphocytes # (A) 1.2 k/uL (1.0-4.8); Lymphocytes % (A) 8 %; MCH 30.8 pg (25.0-35.0); MCHC 34.6 g/dL (31.0-37.0); MCV 89.1 fL (80.0-100.0); Mean Platelet Volume 7.5; Monocytes # (A) 0.8 k/uL (0-1.0); Monocytes % (A) 5 %; Neutrophils # (A) 12.2 k/uL (1.3-7.7); Neutrophils % (A) 83 %; Platelet Count 217 k/uL (150-450); RBC 5.16 m/uL (4.30-5.90); RDW 12.7 % (11.5-15.5); WBC 14.7 k/uL (3.8-10.6)
[2023-12-06] MEDS: SODIUM CHLORIDE 0.9% 1,000 ML IV STA (18:45)
[2023-12-06] MEDS: ACETAMINOPHEN IV (For NPO) 1,000 MG in EMPTY BAG 1 BAG IVPB STA (18:45)
[2023-12-06 18:55] LABS: Appearance,Urine Clear (Clear); Bilirubin,Urine Negative (Negative); Blood,Urine Negative (Negative); Color,Urine Colorless; Glucose,Urine (UA) 4+ (Negative); Ketones,Urine Negative (Negative); Leukocyte Esterase,Urine Negative (Negative); Nitrite,Urine Negative (Negative); PH, Urine 5.5 (5.0-8.0); Protein,Urine Negative (Negative); Urobilinogen,Urine <2.0 mg/dL (<2.0)
[2023-12-06 19:02] LABS: ALT 35 U/L (4-49); AST 32 U/L (17-59); African American GFR (CKD) >90 (>60 ml/min/1.73 sqM); Albumin 4.4 g/dL (3.5-5.0); Alkaline Phosphatase 77 U/L (38-126); Anion Gap 10 mmol/L; Blood Urea Nitrogen 14 mg/dL (9-20); Calcium 9.2 mg/dL (8.4-10.2); Carbon Dioxide 24 mmol/L (22-30); Chloride 102 mmol/L (98-107); Glucose 263 mg/dL (74-99); Magnesium 1.7 mg/dL (1.6-2.3); Non-African American GFR(CKD) >90 (>60 ml/min/1.73 sqM); Potassium 4.5 mmol/L (3.5-5.1); Sodium 136 mmol/L (137-145); Total Bilirubin 0.9 mg/dL (0.2-1.3); Total Protein 7.4 g/dL (6.3-8.2)
--- NOTE | 2023-12-06 19:22 | XR ---
EXAMINATION TYPE: XR chest 2V DATE OF EXAM: 12/06/2023 COMPARISON: 09/13/2019 INDICATION: Pt states he had I&D with washout today at surgical center at [facility]. States one hour later he started feeling bad and has been unable to stop shaking. Constitutional symptoms right TECHNIQUE: Frontal and lateral views of the chest are obtained. FINDINGS: The heart size is prominent. The pulmonary vasculature is somewhat prominent. No focal consolidation evident. IMPRESSION: 1. Correlate for mild volume overload. [facility], Workstation: [facility], 12/06/2023 7:20 PM
[2023-12-06] MEDS ORDERED: VANCOMYCIN IV PER PHARMACY 1 EACH MISC MISCELLANE PRN (19:27)
[2023-12-06] MEDS: CEFEPIME 2 GM in SODIUM CHLORIDE 0.9% 100 ML IVPB STA (19:43)
[2023-12-06] MEDS ORDERED: NALOXONE 0.4 MG/ML 1 ML VIAL IV PRN (20:31)
[2023-12-06] MEDS: VANCOMYCIN 2,000 MG in SODIUM CHLORIDE 0.9% 500 ML 500 ML IVPB STA (20:45)
[2023-12-06] MEDS ORDERED: ACETAMINOPHEN TAB 325 MG TAB PO PRN (22:31)
[2023-12-06] MEDS ORDERED: DEXTROSE 50% SYRINGE 50 ML IVP PRN ×2 (22:32)
[2023-12-06] MEDS ORDERED: ONDANSETRON 4 MG/2 ML VIAL IVP PRN (22:34)
[2023-12-07] MEDS: SODIUM CHLORIDE 0.9% 1,000 ML IV SCH ×2 (03:19→06:54)
[2023-12-07 06:05] LABS: African American GFR (CKD) >90 (>60 ml/min/1.73 sqM); Non-African American GFR(CKD) >90 (>60 ml/min/1.73 sqM)
[2023-12-07 06:17] LABS: Glucose,Whole Blood 290 mg/dL (70-110)
[2023-12-07] MEDS: INSULIN ASPART (NovoLOG) 100 UNIT/ML VIAL SQ SCH ×2 (06:53→17:55)
[2023-12-07 08:55] LABS: Basophils % (A) 0 %; Eosinophils # (A) 0.1 k/uL (0-0.7); Eosinophils % (A) 1 %; HCT 43.7 % (39.0-53.0); HGB 14.2 gm/dL (13.0-17.5); Lymphocytes # (A) 0.8 k/uL (1.0-4.8); Lymphocytes % (A) 9 %; MCH 29.3 pg (25.0-35.0); MCHC 32.6 g/dL (31.0-37.0); MCV 89.7 fL (80.0-100.0); Mean Platelet Volume 7.6; Monocytes # (A) 0.4 k/uL (0-1.0); Monocytes % (A) 4 %; Neutrophils # (A) 6.9 k/uL (1.3-7.7); Neutrophils % (A) 84 %; Platelet Count 152 k/uL (150-450); RBC 4.87 m/uL (4.30-5.90); RDW 12.8 % (11.5-15.5); WBC 8.3 k/uL (3.8-10.6)
[2023-12-07 09:03] LABS: African American GFR (CKD) >90 (>60 ml/min/1.73 sqM); Anion Gap 5 mmol/L; Blood Urea Nitrogen 12 mg/dL (9-20); Calcium 8.3 mg/dL (8.4-10.2); Carbon Dioxide 22 mmol/L (22-30); Chloride 108 mmol/L (98-107); Glucose 253 mg/dL (74-99); Magnesium 1.8 mg/dL (1.6-2.3); Non-African American GFR(CKD) >90 (>60 ml/min/1.73 sqM); Potassium 4.1 mmol/L (3.5-5.1); Sodium 135 mmol/L (137-145)
[2023-12-07 09:13] LABS: NT-Pro-B-Type Natriuretic Pept 140 pg/mL
[2023-12-07] MEDS: CHOLECALCIFEROL 25 MCG (1000 IU) TABLET PO SCH (09:15)
[2023-12-07] MEDS: PIOGLITAZONE 30 MG TAB PO SCH (09:16)
[2023-12-07] MEDS: ATORVASTATIN 20 MG TAB PO SCH (09:16)
[2023-12-07] MEDS: lisinopriL 20 MG TAB PO SCH (09:16)
[2023-12-07] MEDS: amLODIPine 5 MG TAB PO SCH (09:16)
[2023-12-07] MEDS: VANCOMYCIN 2,000 MG in SODIUM CHLORIDE 0.9% 500 ML 500 ML IVPB SCH (09:16)
[2023-12-07] MEDS: metFORMIN 500 MG TAB PO SCH (09:16)
[2023-12-07] MEDS: NICOTINE 21MG/24HR PATCH TRANSDERM SCH (09:17)
[2023-12-07] MEDS: ENOXAPARIN 40 MG/0.4 ML SYRINGE SQ SCH (10:33)
[2023-12-07 12:15] LABS: Glucose,Whole Blood 239 mg/dL (70-110)
--- NOTE | 2023-12-07 14:42 | P.HPIM ---
History of Present Illness H&P Date: 12/07/23 Patient is a 53-year-old male with type 2 diabetes, hyperlipidemia, hypertension, history of CVA/TIA presenting with shaking chills. Patient reports he had scheduled incision and drainage for right inguinal abscess around 2:30pm yesterday at [facility]. Patient reports shortly after he sta rted to feel sick after the procedure. Patient admits to shaking chills, shortness of breath, fever which prompted him to come to the emergency department. Patient denies any nausea, vomiting, diarrhea, constipation, cough, neck pain, headache, chest pain. EKG independently interpreted CXR independently interpreted. WBC 14.7 => 8.3, Hgb 15.9, platelet 217, A1c 12.1, sodium 136, potassium 4.5, B UN 14, creatinine 0.82, glucose 290. Tmax 101 F, MD 106, RR 17, BP 123/84, O2 sat 94% on room air ED documentation reviewed. Review of systems: Pertinent positives and negatives as discussed in HPI, a complete review of systems was performed and all other systems are negative. Physical examination: Vital signs reviewed General: non toxic, no distress, appears at stated age, obese Derm: no unusual rashes/lesions, warm Head: atraumatic, normocephalic, symmetric Eyes: EOMI, anicteric sclera, pupils equal round reactive to light ENT: Nose and ears atraumatic Neck: No cervical lymphadenopathy, trachea midline, supple Mouth: no lip lesion, mucus membranes moist Cardiovascular: S1S2 reg, no murmur, positive dorsalis pedis pulse bilateral, no edema Lungs: CTA bilateral, no rhonchi, no rales, no accessory muscle use Abdominal: soft, nontender to palpation, no guarding Ext: muscle strength 5 out of 5 in all 4 extremities grossly, right groin incision with no erythema or drainage currently packed Neuro: CN II-XI grossly intact, no gross focal neuro deficits Psych: Alert, oriented to person, place, and time Assessment/Plan: Patient is a 53-year-old male with type 2 diabetes, hyperlipidemia, hypertension, history of CVA/TIA presenting with shaking chills. #. Sepsis Right inguinal abscess SIRS positive: WBC 14.7, pulse rate 106, Tmax 101.0 F Blood cultures ordered Currently on IV vancomycin dosed by pharmacy Given 1 L normal saline bolus by ED Currently on normal saline at 75 cc/HR Right groin ultrasound ordered Obtaining previous cultures from [facility] Wound care ID consulted #. Type 2 diabetes, uncontrolled Insulin subcu sliding scale Accu-Cheks, monitor for hypoglycemia Resume home anti-diabetic meds #. Hypertension Continue with amlodipine 5 mg p.o. daily Continue with lisinopril 20 mg p.o. daily Hold medications if patient starts to become hypotensive #. Hyperlipidemia Continue with home atorvastatin 20 mg F: 75 cc/HR E: Replete electrolytes as needed N: Heart healthy diet A: Ambulatory DVT prophylaxis: Lovenox 40 SQ daily The patient is admitted with an anticipated greater than 2 midnight stay for evaluation of sepsis CODE STATUS: Full code Discussed with: Patient Anticipated discharge place: Home Past Medical History Past Medical History: CVA/TIA, Diabetes Mellitus, Hyperlipidemia, Hypertension History of Any Multi-Drug Resistant Organisms: None Reported Past Surgical History: Joint Replacement Additional Past Surgical History / Comment(s): Stent placed in groin Past Psychological History: Anxiety, Bipolar, Depression Smoking Status: Current every day smoker Past Alcohol Use History: Occasional Past Drug Use History: None Reported Medications and Allergies Home Medications Medication Instructions Recorded Confirmed Type amLODIPine [Norvasc] 5 mg PO DAILY 08/08/19 12/06/23 History Pioglitazone [Actos] 30 mg PO DAILY 05/18/21 12/06/23 History metFORMIN HCL [Glucophage] 1,000 mg PO BID 05/18/21 12/06/23 History Cholecalciferol (Vitamin D3) 50 mcg PO DAILY 12/06/23 12/06/23 History [Vitamin D3 (50 Mcg = 2000 Iu)] Dulaglutide [Trulicity] 0.75 mg SQ WE 12/06/23 12/06/23 History Rosuvastatin [Crestor] 10 mg PO DAILY 12/06/23 12/06/23 History lisinopriL [Zestril] 20 mg PO DAILY 12/06/23 12/06/23 History Allergies Allergy/AdvReac Type Severity Reaction Status Date / Time tuberculin,PPD,multi-puncture Allergy Unknown Unknown Verified 12/06/23 19:37 Physical Exam Vitals: Vital Signs Temp Pulse Pulse Resp BP BP Pulse Ox 12/07/23 07:00 99.5 F 106 H 17 123/84 94 L 12/07/23 01:38 99.0 F 102 H 20 99/64 97 12/06/23 22:21 99.4 F 108 H 20 123/79 96 12/06/23 20:47 101.0 F H 117 H 18 124/67 97 12/06/23 18:22 22 12/06/23 18:01 100.8 F H 115 H 24 169/103 96 12/06/23 17:58 99.4 F 124 H 20 98/71 96 Intake and Output 12/06/23 12/07/23 12/07/23 22:59 06:59 14:59 Intake Total 360 560 Balance 360 560 Intake: Oral 360 560 Other: Voiding Method Toilet # Voids 1 3 Weight 120.202 kg Results CBC & Chem 7: 12/08/23 06:20 12/08/23 06:20 Labs: Abnormal Lab Results - Last 24 Hours (Table) 12/06/23 12/06/23 12/06/23 Range/Units 18:22 18:22 18:49 WBC 14.7 H (3.8-10.6) k/uL Neutrophils # 12.2 H (1.3-7.7) k/uL Sodium 136 L (137-145) mmol/L Glucose 263 H (74-99) mg/dL POC Glucose (mg/dL) (70-110) mg/dL Urine Glucose (UA) 4+ H (Negative) 12/07/23 Range/Units 06:15 WBC (3.8-10.6) k/uL Neutrophils # (1.3-7.7) k/uL Sodium (137-145) mmol/L Glucose (74-99) mg/dL POC Glucose (mg/dL) 290 H (70-110) mg/dL Urine Glucose (UA) (Negative) Thrombosis Risk Factor Assmnt - Choose All That Apply Each Factor Represents 1 point: Age 41-60 years, Obesity (BMI >25), Sepsis (< 1month), Varicose veins Thrombosis Risk Factor Assessment Total Risk Factor Score: 4 Thrombosis Risk Factor Assessment Level: Moderate Risk
--- NOTE | 2023-12-07 15:18 | US ---
EXAMINATION TYPE: US groin RT DATE OF EXAM: 12/07/2023 COMPARISON: NONE CLINICAL INDICATION: Male, 53 years old with history of sepsis; known rt groin abscess, I&D yesterday , patient states it feels much better TECHNIQUE: soft tissue thigh scan FINDINGS: 2.3cm hypoechoic area seen under the packing material that is within the wound, not hyper vascular IMPRESSION: Postprocedural changes no definitive large pocket of fluid remains. Consider follow up im aging after packing material has been removed. [facility], , 12/07/2023 3:16 PM
[2023-12-07 17:17] LABS: Glucose,Whole Blood 292 mg/dL (70-110)
[2023-12-07 20:01] LABS: Glucose,Whole Blood 185 mg/dL (70-110)
--- NOTE | 2023-12-07 22:23 | P.CONS ---
History of Present Illness - Reason for Consult Consult date: 12/07/23 Sirs Requesting physician: Juan David Godwin - Chief Complaint Right groin pain and chills x 1 day - History of Present Illness Patient is a 53-year-old male with a past medical history significant for diabetes mellitus hypertension hyperlipidemia CVA TIA bipolar depression presenting to the hospital for evaluation of rigors and chills apparently the patient started having a problem with a boil in the right inner thigh area that has subsequently become bigger in size patient was evaluated by vascular surgeon who referred him to general surgeon and the patient did have I&D of that abscess to the right thigh area and the patient was subsequent discharged home later that evening the patient on having chills not feeling well has been complaining of pain to the right thigh area dull aching to sharp moderate intensity without radiation patient on presentation to the hospital did have low-grade fever and subsequently spike of temperature of 101 F patient was tachycardic but not hypotensive or hypoxic no need for supplemental oxygen patient did have white count 14.7 with a left shift creatinine has been normal electrolytes are normal urine has been negative influenza RSV COVID testing has been negative blood culture were done which are currently pending patient did have groin ultrasound postprocedure changes no definite large pocket of fluid remains patient has been started on vancomycin infectious disease was consulted for further management of antibiotic therapy Review of Systems Positive point and negatives has been mentioned in the HPI, complete review of systems was performed and all other systems are negative Past Medical History Past Medical History: CVA/TIA, Diabetes Mellitus, Hyperlipidemia, Hypertension History of Any Multi-Drug Resistant Organisms: None Reported Past Surgical History: Joint Replacement Additional Past Surgical History / Comment(s): Stent placed in groin Past Psychological History: Anxiety, Bipolar, Depression Smoking Status: Current every day smoker Past Alcohol Use History: Occasional Past Drug Use History: None Reported Medications and Allergies Home Medications Medication Instructions Recorded Confirmed Type amLODIPine [Norvasc] 5 mg PO DAILY 08/08/19 12/06/23 History Pioglitazone [Actos] 30 mg PO DAILY 05/18/21 12/06/23 History metFORMIN HCL [Glucophage] 1,000 mg PO BID 05/18/21 12/06/23 History Cholecalciferol (Vitamin D3) 50 mcg PO DAILY 12/06/23 12/06/23 History [Vitamin D3 (50 Mcg = 2000 Iu)] Dulaglutide [Trulicity] 0.75 mg SQ WE 12/06/23 12/06/23 History Rosuvastatin [Crestor] 10 mg PO DAILY 12/06/23 12/06/23 History lisinopriL [Zestril] 20 mg PO DAILY 12/06/23 12/06/23 History Allergies Allergy/AdvReac Type Severity Reaction Status Date / Time tuberculin,PPD,multi-puncture Allergy Unknown Unknown Verified 12/06/23 19:37 Physical Exam Vitals: Vital Signs Temp Pulse Pulse Resp BP BP Pulse Ox 12/07/23 07:00 99.5 F 106 H 17 123/84 94 L 12/07/23 01:38 99.0 F 102 H 20 99/64 97 12/06/23 22:21 99.4 F 108 H 20 123/79 96 12/06/23 20:47 101.0 F H 117 H 18 124/67 97 12/06/23 18:22 22 12/06/23 18:01 100.8 F H 115 H 24 169/103 96 12/06/23 17:58 99.4 F 124 H 20 98/71 96 Intake and Output 12/06/23 12/07/23 12/07/23 22:59 06:59 14:59 Intake Total 360 560 118 Balance 360 560 118 Intake: Oral 360 560 118 Other: Voiding Method Toilet Toilet # Voids 1 3 Weight 120.202 kg GENERAL DESCRIPTION: Middle-aged male lying in bed, no distress. No tachypnea or accessory muscle of respiration use. HEENT: Shows Pallor , no scleral icterus. Oral mucous membrane is dry. No pharyngeal erythema or thrush NECK: Trachea central, no thyromegaly. LUNGS: Unlabored breathing. Clear to auscultation anteriorly. No wheeze or crackle. HEART: S1, S2, regular rate and rhythm. No loud murmur ABDOMEN: Soft, no tenderness , guarding or rigidity, no organomegaly EXTREMITIES: Right groin did have an area of swelling redness minimal drainage on the dressing SKIN: No rash, no masses palpable. NEUROLOGICAL: The patient is awake, alert, oriented x3, mood and affect normal. Results CBC & Chem 7: 12/07/23 08:31 12/07/23 08:31 Labs: Abnormal Lab Results - Last 24 Hours (Table) 12/06/23 12/06/23 12/06/23 Range/Units 18:22 18:22 18:49 WBC 14.7 H (3.8-10.6) k/uL Neutrophils # 12.2 H (1.3-7.7) k/uL Lymphocytes # (1.0-4.8) k/uL Sodium 136 L (137-145) mmol/L Chloride (98-107) mmol/L Glucose 263 H (74-99) mg/dL POC Glucose (mg/dL) (70-110) mg/dL Hemoglobin A1c (<=6.0) % Calcium (8.4-10.2) mg/dL Urine Glucose (UA) 4+ H (Negative) 12/07/23 12/07/23 12/07/23 Range/Units 05:14 06:15 08:31 WBC (3.8-10.6) k/uL Neutrophils # (1.3-7.7) k/uL Lymphocytes # 0.8 L (1.0-4.8) k/uL Sodium (137-145) mmol/L Chloride (98-107) mmol/L Glucose (74-99) mg/dL POC Glucose (mg/dL) 290 H (70-110) mg/dL Hemoglobin A1c 12.1 H (<=6.0) % Calcium (8.4-10.2) mg/dL Urine Glucose (UA) (Negative) 12/07/23 Range/Units 08:31 WBC (3.8-10.6) k/uL Neutrophils # (1.3-7.7) k/uL Lymphocytes # (1.0-4.8) k/uL Sodium 135 L (137-145) mmol/L Chloride 108 H (98-107) mmol/L Glucose 253 H (74-99) mg/dL POC Glucose (mg/dL) (70-110) mg/dL Hemoglobin A1c (<=6.0) % Calcium 8.3 L (8.4-10.2) mg/dL Urine Glucose (UA) (Negative) Assessment and Plan (1) Sepsis Current Visit: Yes Status: Acute Code(s): A41.9 - SEPSIS, UNSPECIFIED ORGANISM SNOMED Code(s): 25615754 (2) Abscess of right groin Current Visit: Yes Status: Acute Code(s): L02.214 - CUTANEOUS ABSCESS OF GROIN SNOMED Code(s): 12830782 Plan: 1patient presented to hospital with sepsis in this patient who did have fever tachycardia elevated white count source in the right groin abscess that has been drained in the outpatient setting before the patient presented to the hospital likely staphylococcal infection with a question of possible MRSA 2-nursing staff will try to get the culture data from [facility] with a culture was sent 3-vancomycin pharmacy to dose target trough of 15 while watching kidney function and Vanco trough closely We will follow on clinical condition and cultures to further adjust medication if needed Thank you for this consultation we will follow the patient along with you Dictation was produced using [employer] dictation software. please excuse any grammatical, word or spelling errors. Time with Patient: Greater than 30
[2023-12-08 06:00] LABS: Glucose,Whole Blood 178 mg/dL (70-110)
[2023-12-08 06:53] LABS: African American GFR (CKD) >90 (>60 ml/min/1.73 sqM); Anion Gap 2 mmol/L; Blood Urea Nitrogen 10 mg/dL (9-20); Calcium 8.1 mg/dL (8.4-10.2); Carbon Dioxide 23 mmol/L (22-30); Chloride 109 mmol/L (98-107); Glucose 174 mg/dL (74-99); Magnesium 1.7 mg/dL (1.6-2.3); Non-African American GFR(CKD) >90 (>60 ml/min/1.73 sqM); Potassium 3.9 mmol/L (3.5-5.1); Sodium 134 mmol/L (137-145)
[2023-12-08 08:34] LABS: Basophils # (A) 0.05 X 10*3/uL (0.00-0.10); Basophils % (A) 0.9 %; Eosinophils # (A) 0.19 X 10*3/uL (0.04-0.35); Eosinophils % (A) 3.3 %; HCT 41.9 % (39.6-50.0); Lymphocytes # (A) 1.36 X 10*3/uL (0.90-5.00); Lymphocytes % (A) 23.4 %; MCH 29.5 pg (27.0-32.0); MCHC 33.4 g/dL (32.0-37.0); MCV 88.2 FL (80.0-97.0); Mean Platelet Volume 10.5 FL (9.5-12.2); Monocytes # (A) 0.93 X 10*3/uL (0.20-1.00); NRBC Per 100 WBC 0 X 10*3/uL (0.00-0.01); Neutrophils # (A) 3.26 X 10*3/uL (1.80-7.70); Neutrophils % (A) 55.9 %; Platelet Count 155 X 10*3/uL (140-440); RBC 4.75 X 10*6/uL (4.40-5.60); RDW 12.6 % (11.5-14.5); WBC 5.82 X 10*3/uL (4.50-10.00)
[2023-12-08 11:52] LABS: Glucose,Whole Blood 311 mg/dL (70-110)
[2023-12-08 13:36] VITALS: BMI 42.7
--- NOTE | 2023-12-08 13:52 | P.PN ---
Subjective Progress Note Date: 12/08/23 Hospital course: Patient is a 53-year-old male with type 2 diabetes, hyperlipidemia, hypertension, history of CVA/TIA presenting with shaking chills. Patient reports he had scheduled incision and drainage for right inguinal abscess around 2:30pm yesterday at [facility]. Patient reports shortly after he started to feel sick after the procedure. Patient admits to shaking chills, shortness of breath, fever which prompted him to come to the emergency department. Patient denies any nausea, vomiting, diarrhea, constipation, cough, neck pain, headache, chest pain. EKG independently interpreted displays sinus tachycardia, rate 108 bpm, QTc 385 CXR independently interpreted mild pulmonary vascular congestion WBC 14.7 => 8.3, Hgb 15.9, platelet 217, A1c 12.1, sodium 136, potassium 4.5, BUN 14, creatinine 0.82, glucose 290. Tmax 101 F, [place] 106, RR 17, BP 123/84, O2 sat 94% on room air Patient admitted to internal medicine service. 12/08/2023: Patient seen and evaluated bedside. Patient more active than easier to communicate with than yesterday. He states he feels a lot better. Patient afebrile overnight, no acute complaints. No overnight events. We are still waiting for wound cultures from [facility]. White blood count has continued to downtrend to 5.82. Pertinent positives and negatives as discussed above, a complete review of systems was performed and all other systems are negative. Vitals: Signs Reviewed Physical Exam: Vital signs reviewed General: non toxic, no distress, appears at stated age, obese Derm: no unusual rashes/lesions, warm Head: atraumatic, normocephalic, symmetric Eyes: EOMI, anicteric sclera, pupils equal round reactive to light ENT: Nose and ears atraumatic Mouth: no lip lesion, mucus membranes moist Cardiovascular: S1S2 reg, no murmur, positive dorsalis pedis pulse bilateral, no edema Lungs: CTA bilateral, no rhonchi, no rales, no accessory muscle use Abdominal: soft, nontender to palpation, no guarding Ext: muscle strength 5 out of 5 in all 4 extremities grossly, right groin incision with no erythema or drainage currently packed Neuro: CN II-XI grossly intact, no gross focal neuro deficits Psych: Alert, oriented to person, place, and time Data Received Today: Pertinent Labs: WBC 5.8, sodium 134, potassium 3.9, glucose 174 Imaging: Right groin ultrasound displays postprocedural changes no definitive large pocket of fluid remains Assessment and Plan: #. Sepsis, improved #. S/p right inguinal abscess incision and drainage SIRS positive: WBC 14.7, pulse rate 106, Tmax 101.0 F Blood cultures showing no growth after 24 hours Continue on IV vancomycin dosed by pharmacy Given 1 L normal saline bolus by ED Currently on normal saline at 75 cc/HR Right groin ultrasound displays postprocedural changes no definitive large pocket of fluid remains Obtaining previous cultures from [facility] Wound care ID consulted, note read. #. Type 2 diabetes, uncontrolled Insulin subcu sliding scale Accu-Cheks, monitor for hypoglycemia Resume home anti-diabetic meds #. Hypertension Continue with amlodipine 5 mg p.o. daily Continue with lisinopril 20 mg p.o. daily Hold medications if patient starts to become hypotensive #. Hyperlipidemia Continue with home atorvastatin 20 mg F: 75 cc/HR E: Replete electrolytes as needed N: Heart healthy diet A: Ambulatory DVT prophylaxis: Lovenox 40 SQ daily The patient is admitted with an anticipated greater than 2 midnight stay for evaluation of sepsis states s/p right inguinal abscess which is draining. CODE STATUS: Full code Discussed with: Patient Anticipated discharge place: Home Attestation I have seen and examined this patient with my resident , discussed the same with the resident/STONE, and agree with the dictator's assessment and plan as written Dr. Jero godinez Objective - Vital Signs Vital signs: Vital Signs Temp 98.6 F 12/08/23 07:02 Pulse 81 12/08/23 07:02 Resp 17 12/08/23 09:07 BP 138/76 12/08/23 07:02 Pulse Ox 96 12/08/23 07:02 FiO2 Intake & Output 12/07/23 12/08/23 12/08/23 18:59 06:59 18:59 Intake Total 354 Balance 354 Intake: Oral 354 Other: Voiding Method Toilet Toilet # Voids 2 1 2 # Bowel Movements 1 - Labs CBC & Chem 7: 12/08/23 06:20 12/09/23 07:51 Labs: Abnormal Lab Results - Last 24 Hours (Table) 12/07/23 12/07/23 12/08/23 Range/Units 17:12 19:58 05:58 Sodium (137-145) mmol/L Chloride (98-107) mmol/L Glucose (74-99) mg/dL POC Glucose (mg/dL) 292 H 185 H 178 H (70-110) mg/dL Calcium (8.4-10.2) mg/dL 12/08/23 12/08/23 Range/Units 06:20 11:50 Sodium 134 L (137-145) mmol/L Chloride 109 H (98-107) mmol/L Glucose 174 H (74-99) mg/dL POC Glucose (mg/dL) 311 H (70-110) mg/dL Calcium 8.1 L (8.4-10.2) mg/dL Microbiology - Last 24 Hours (Table) 12/06/23 18:22 Blood Culture - Preliminary Blood
--- NOTE | 2023-12-08 15:42 | P.PN ---
Subjective Progress Note Date: 12/08/23 Principal diagnosis: Reason for follow-up is right groin abscess Patient is a 53-year-old male with a past medical history significant for diabetes mellitus hypertension hyperlipidemia CVA TIA bipolar depression presenting to the hospital for evaluation of rigors and chills with a drainage of an abscess to the right groin earlier that day in the outpatient setting and a previous history of drainage about 3 weeks ago. On today's evaluation that is 12/08/2023, the patient continues to be afebrile, the patient is on room air and breathing comfortably, the Pt denies having any chest pain or cough, the patient denies having any abdominal pain no vomiting or any diarrhea patient pain and induration to the right groin has decreased in intensity. Patient white count is 5.82, creatinine 0.81 blood cultures are pending Objective - Vital Signs Vital signs: Vital Signs Temp 98.6 F 12/08/23 07:02 Pulse 81 12/08/23 07:02 Resp 17 12/08/23 09:07 BP 138/76 12/08/23 07:02 Pulse Ox 96 12/08/23 07:02 FiO2 Intake & Output 12/07/23 12/08/23 12/08/23 18:59 06:59 18:59 Intake Total 354 Balance 354 Intake: Oral 354 Other: Voiding Method Toilet Toilet # Voids 2 1 2 # Bowel Movements 1 - Exam GENERAL DESCRIPTION: Middle-age male lying in bed in no distress RESPIRATORY SYSTEM: Unlabored breathing , decreased breath sounds at bases HEART: S1 S2 regular rate and rhythm , ABDOMEN: Soft , no tenderness EXTREMITIES: Right groin open wound for drainage did have an area of induration no significant redness - Labs CBC & Chem 7: 12/08/23 06:20 12/08/23 06:20 Labs: Abnormal Lab Results - Last 24 Hours (Table) 12/07/23 12/07/23 12/07/23 Range/Units 12:14 17:12 19:58 Sodium (137-145) mmol/L Chloride (98-107) mmol/L Glucose (74-99) mg/dL POC Glucose (mg/dL) 239 H 292 H 185 H (70-110) mg/dL Calcium (8.4-10.2) mg/dL 12/08/23 12/08/23 Range/Units 05:58 06:20 Sodium 134 L (137-145) mmol/L Chloride 109 H (98-107) mmol/L Glucose 174 H (74-99) mg/dL POC Glucose (mg/dL) 178 H (70-110) mg/dL Calcium 8.1 L (8.4-10.2) mg/dL Microbiology - Last 24 Hours (Table) 12/06/23 18:22 Blood Culture - Preliminary Blood Assessment and Plan (1) Sepsis Current Visit: Yes Status: Acute Code(s): A41.9 - SEPSIS, UNSPECIFIED ORGANISM SNOMED Code(s): 20447077 (2) Abscess of right groin Current Visit: Yes Status: Acute Code(s): L02.214 - CUTANEOUS ABSCESS OF GROIN SNOMED Code(s): 99199314 Plan: 1patient presented to hospital with sepsis in this patient who did have fever tachycardia elevated white count source in the right groin abscess that has been drained in the outpatient setting before the patient presented to the hospital likely staphylococcal infection with a question of possible MRSA 2-patient apparently has admission to the [facility] 3 weeks ago and did have a drainage procedure which grew multiple pathogen 3-vancomycin pharmacy to dose target trough of 15 while waiting for the culture from this abscess drainage is finalized to determine the right discharge antibiotics patient has been insisting on going home however has been told he need to stay in the hospital she will be get the culture so he can be sent on the right antibiotic and prevent recurrent abscess/admission Dictation was produced using [employer] dictation software. please excuse any grammatical, word or spelling errors. Time with Patient: Less than 30
[2023-12-08 17:05] LABS: Glucose,Whole Blood 342 mg/dL (70-110)
[2023-12-08 20:17] LABS: Glucose,Whole Blood 225 mg/dL (70-110)
[2023-12-09 05:53] LABS: Glucose,Whole Blood 300 mg/dL (70-110)
[2023-12-09 08:45] LABS: African American GFR (CKD) >90 (>60 ml/min/1.73 sqM); Anion Gap 4 mmol/L; Blood Urea Nitrogen 9 mg/dL (9-20); Calcium 8.6 mg/dL (8.4-10.2); Carbon Dioxide 27 mmol/L (22-30); Chloride 107 mmol/L (98-107); Glucose 250 mg/dL (74-99); Non-African American GFR(CKD) >90 (>60 ml/min/1.73 sqM); Potassium 4.2 mmol/L (3.5-5.1); Sodium 138 mmol/L (137-145)
[2023-12-09] MEDS: VANCOMYCIN TROUGH DUE 1 EACH MISC MISCELLANE ONE (09:22)
[2023-12-09 10:42] LABS: Basophils % (A) 1 %; Eosinophils # (A) 0.7 k/uL (0-0.7); Eosinophils % (A) 10 %; HCT 42.4 % (39.0-53.0); HGB 13.8 gm/dL (13.0-17.5); Lymphocytes # (A) 1.7 k/uL (1.0-4.8); Lymphocytes % (A) 24 %; MCH 29.1 pg (25.0-35.0); MCHC 32.5 g/dL (31.0-37.0); MCV 89.7 fL (80.0-100.0); Mean Platelet Volume 8.4; Monocytes # (A) 0.7 k/uL (0-1.0); Monocytes % (A) 10 %; Neutrophils # (A) 3.6 k/uL (1.3-7.7); Neutrophils % (A) 51 %; Platelet Count 166 k/uL (150-450); RBC 4.73 m/uL (4.30-5.90); RDW 13.1 % (11.5-15.5); WBC 7.1 k/uL (3.8-10.6)
[2023-12-09 12:06] LABS: Glucose,Whole Blood 368 mg/dL (70-110)
--- NOTE | 2023-12-09 12:46 | P.PN ---
Subjective Progress Note Date: 12/09/23 Hospital course: Patient is a 53-year-old male with type 2 diabetes, hyperlipidemia, hypertension, history of CVA/TIA presenting with shaking chills. Patient reports he had scheduled incision and drainage for right inguinal abscess around 2:30pm yesterday at [facility]. Patient reports shortly after he started to feel sick after the procedure. Patient admits to shaking chills, shortness of breath, fever which prompted him to come to the emergency department. Patient denies any nausea, vomiting, diarrhea, constipation, cough, neck pain, headache, chest pain. EKG independently interpreted displays sinus tachycardia, rate 108 bpm, QTc 385 CXR independently interpreted mild pulmonary vascular congestion WBC 14.7 => 8.3, Hgb 15.9, platelet 217, A1c 12.1, sodium 136, potassium 4.5, BUN 14, creatinine 0.82, glucose 290. Tmax 101 F, [place] 106, RR 17, BP 123/84, O2 sat 94% on room air Patient admitted to internal medicine service. 12/08/2023: Patient seen and evaluated bedside. Patient more active and easier to communicate with than yesterday. He states he feels a lot better. Patient afebrile overnight, no acute complaints. No overnight events. We are still waiting for wound cultures from [facility]. White blood count has continued to downtrend to 5.82. 12/09/2023: Patient seen and evaulated bedside. Called the lab at [facility], with the patient, for previous cultures to be faxed. Was told most recent cultures are still pending. Patient afebrile, no overnight events, no acute complaints. Pertinent positives and negatives as discussed above, a complete review of systems was performed and all other systems are negative. Vitals: Signs Reviewed Physical Exam: Vital signs reviewed General: non toxic, no distress, appears at stated age, obese Derm: no unusual rashes/lesions, warm Head: atraumatic, normocephalic, symmetric Eyes: EOMI, anicteric sclera, pupils equal round reactive to light ENT: Nose and ears atraumatic Mouth: no lip lesion, mucus membranes moist Cardiovascular: S1S2 reg, no murmur, positive dorsalis pedis pulse bilateral, no edema Lungs: CTA bilateral, no rhonchi, no rales, no accessory muscle use Abdominal: soft, nontender to palpation, no guarding Ext: muscle strength 5 out of 5 in all 4 extremities grossly, right groin incision with no erythema or drainage currently packed Neuro: CN II-XI grossly intact, no gross focal neuro deficits Psych: Alert, oriented to person, place, and time Data Received Today: Pertinent Labs: WBC 7.1, sodium 138, potassium 4.2 glucose 250 Imaging: Right groin ultrasound displays postprocedural changes no definitive large pocket of fluid remains Assessment and Plan: #. Sepsis, resolved #. S/p right inguinal abscess incision and drainage SIRS positive: WBC 14.7, pulse rate 106, Tmax 101.0 F on admission Blood cultures showing no growth after 24 hours Continue on IV vancomycin dosed by pharmacy Given 1 L normal saline bolus by ED Currently on normal saline at 75 cc/HR Right groin ultrasound displays postprocedural changes no definitive large pocket of fluid remains Obtaining previous cultures from [facility] Wound care ID consulted, note read. Still waiting for cultures to come in from [facility]. Continue with IV vancomycin #. Type 2 diabetes, uncontrolled Insulin subcu sliding scale Accu-Cheks, monitor for hypoglycemia Resume home anti-diabetic meds #. Hypertension Continue with amlodipine 5 mg p.o. daily Continue with lisinopril 20 mg p.o. daily Hold medications if patient starts to become hypotensive #. Hyperlipidemia Continue with home atorvastatin 20 mg F: 75 cc/HR E: Replete electrolytes as needed N: Heart healthy diet A: Ambulatory DVT prophylaxis: Lovenox 40 SQ daily The patient is admitted with an anticipated greater than 2 midnight stay for evaluation of sepsis states s/p right inguinal abscess which is draining. CODE STATUS: Full code Discussed with: Patient Anticipated discharge place: Home Attestation I have seen and examined this patient with my resident , discussed the same with the resident/STONE, and agree with the dictator's assessment and plan as written Dr. Jero godinez Objective - Vital Signs Vital signs: Vital Signs Temp 98.0 F 12/09/23 07:05 Pulse 78 12/09/23 07:05 Resp 17 12/09/23 07:05 BP 100/67 12/09/23 07:05 Pulse Ox 95 12/09/23 07:05 FiO2 Intake & Output 12/08/23 12/09/23 12/09/23 18:59 06:59 18:59 Intake Total 1636 118 Balance 1636 118 Weight 120.202 kg Intake: Intake, IV Titration 1400 Amount Sodium Chloride 0.9% 1, 900 000 ml @ 75 mls/hr IV . [id number] KIMBER Rx#:[id number] Vancomycin 2,000 mg In 500 Sodium Chloride 0.9% 500 ml 500 ml @ 167 mls/hr IVPB Q12H KIMBER Rx#: [id number] Oral 236 118 Other: # Voids 2 3 # Bowel Movements 1 - Labs CBC & Chem 7: 12/09/23 07:51 12/09/23 07:51 Labs: Abnormal Lab Results - Last 24 Hours (Table) 12/08/23 12/08/23 12/08/23 Range/Units 11:50 17:04 20:08 Glucose (74-99) mg/dL POC Glucose (mg/dL) 311 H 342 H 225 H (70-110) mg/dL 12/09/23 12/09/23 Range/Units 05:50 07:51 Glucose 250 H (74-99) mg/dL POC Glucose (mg/dL) 300 H (70-110) mg/dL Microbiology - Last 24 Hours (Table) 12/06/23 18:22 Blood Culture - Preliminary Blood
--- NOTE | 2023-12-09 15:01 | P.PN ---
Subjective Progress Note Date: 12/09/23 Principal diagnosis: Reason for follow-up is right groin abscess Patient is a 53-year-old male with a past medical history significant for diabetes mellitus hypertension hyperlipidemia CVA TIA bipolar depression presenting to the hospital for evaluation of rigors and chills with a drainage of an abscess to the right groin earlier that day in the outpatient setting and a previous history of drainage about 3 weeks ago. On today's evaluation that is 12/09/2023, Patient is afebrile patient is currently on room air and denies having any shortness of breath, the patient denies any chest pain or cough, the patient denies any nausea vomiting did not have any abdominal pain and no diarrhea denies any worsening pain to the right groin area. Patient white count 7.1, creatinine 0.81 Vanco trough is slightly low at 12.1 blood culture currently pending Objective - Vital Signs Vital signs: Vital Signs Temp 98.0 F 12/09/23 07:05 Pulse 78 12/09/23 07:05 Resp 17 12/09/23 07:05 BP 100/67 12/09/23 07:05 Pulse Ox 95 12/09/23 07:05 FiO2 Intake & Output 12/08/23 12/09/23 12/09/23 18:59 06:59 18:59 Intake Total 1636 118 Balance 1636 118 Weight 120.202 kg Intake: Intake, IV Titration 1400 Amount Sodium Chloride 0.9% 1, 900 000 ml @ 75 mls/hr IV . [id number] KIMBER Rx#:[id number] Vancomycin 2,000 mg In 500 Sodium Chloride 0.9% 500 ml 500 ml @ 167 mls/hr IVPB Q12H KIMBER Rx#: [id number] Oral 236 118 Other: # Voids 2 3 # Bowel Movements 1 - Exam GENERAL DESCRIPTION: Middle-age male lying in bed in no distress RESPIRATORY SYSTEM: Unlabored breathing , decreased breath sounds at bases HEART: S1 S2 regular rate and rhythm , ABDOMEN: Soft , no tenderness EXTREMITIES: Right groin open wound currently dressed - Labs CBC & Chem 7: 12/09/23 07:51 12/09/23 07:51 Labs: Abnormal Lab Results - Last 24 Hours (Table) 12/08/23 12/08/23 12/08/23 Range/Units 11:50 17:04 20:08 Glucose (74-99) mg/dL POC Glucose (mg/dL) 311 H 342 H 225 H (70-110) mg/dL 12/09/23 12/09/23 Range/Units 05:50 07:51 Glucose 250 H (74-99) mg/dL POC Glucose (mg/dL) 300 H (70-110) mg/dL Microbiology - Last 24 Hours (Table) 12/06/23 18:22 Blood Culture - Preliminary Blood Assessment and Plan (1) Sepsis Current Visit: Yes Status: Acute Code(s): A41.9 - SEPSIS, UNSPECIFIED ORGANISM SNOMED Code(s): 90379915 (2) Abscess of right groin Current Visit: Yes Status: Acute Code(s): L02.214 - CUTANEOUS ABSCESS OF GROIN SNOMED Code(s): 67193316 Plan: 1patient presented to hospital with sepsis in this patient who did have fever tachycardia elevated white count source in the right groin abscess that has been drained in the outpatient setting before the patient presented to the hospital likely staphylococcal infection with a question of possible MRSA 2-patient apparently has admission to the [facility] 3 weeks ago and did have a drainage procedure which grew multiple pathogen 3-we are currently waiting for the culture done at outside to determine discharge antibiotics for now continue with the vancomycin discussed with the admitting team Dictation was produced using [employer] dictation software. please excuse any grammatical, word or spelling errors. Time with Patient: Less than 30
[2023-12-09 17:01] LABS: Glucose,Whole Blood 258 mg/dL (70-110)
[2023-12-09 20:23] LABS: Glucose,Whole Blood 286 mg/dL (70-110)
[2023-12-09] MEDS: NYSTATIN 100,000 UNIT/GM OINT 30 GM TUBE TOPICAL SCH (20:46)
[2023-12-10 06:06] LABS: Glucose,Whole Blood 226 mg/dL (70-110)
[2023-12-10 07:43] VITALS: BP 118/80; PULSE 94; RESP 16; TEMP 97.9
[2023-12-10 08:55] LABS: Basophils # (A) 0.08 X 10*3/uL (0.00-0.10); Basophils % (A) 0.8 %; Eosinophils % (A) 9.5 %; HCT 40.7 % (39.6-50.0); HGB 13.1 g/dL (13.0-17.0); Lymphocytes # (A) 2.61 X 10*3/uL (0.90-5.00); Lymphocytes % (A) 27.7 %; MCHC 32.2 g/dL (32.0-37.0); MCV 90.2 FL (80.0-97.0); Mean Platelet Volume 10.7 FL (9.5-12.2); Monocytes # (A) 0.92 X 10*3/uL (0.20-1.00); Monocytes % (A) 9.8 %; NRBC Per 100 WBC 0 X 10*3/uL (0.00-0.01); Neutrophils # (A) 4.88 X 10*3/uL (1.80-7.70); Neutrophils % (A) 51.8 %; Platelet Count 174 X 10*3/uL (140-440); RBC 4.51 X 10*6/uL (4.40-5.60); RDW 12.6 % (11.5-14.5); WBC 9.43 X 10*3/uL (4.50-10.00)
[2023-12-10 09:02] LABS: BUN/Creat Ratio 14.75 Ratio (12.00-20.00); Blood Urea Nitrogen 11.8 mg/dL (9.0-27.0); Calcium 8.7 mg/dL (8.7-10.3); Carbon Dioxide 20.9 mmol/L (21.6-31.8); Chloride 105 mmol/L (96-109); Glucose 235 mg/dL (70-110); Magnesium 1.5 mg/dL (1.5-2.4); Potassium 4.1 mmol/L (3.5-5.5); Sodium 139 mmol/L (135-145)
--- NOTE | 2023-12-10 12:37 | P.DS ---
Providers Date of admission: 12/06/23 20:32 Expected date of discharge: 12/10/23 Attending physician: Braulio Franklin Consults: 12/06/23 20:31 Consult Physician Routine Consulting Provider: Ghazal Pisano Consult Reason/Comments: sirs Do you want consulting provider notified?: Yes Primary care physician: [facility] Course: Discharge diagnoses; #. Sepsis, resolved #. S/p right inguinal abscess incision and drainage #. Type 2 diabetes, uncontrolled #. Hypertension #. Hyperlipidemia Hospital course; Patient is a 53-year-old male with type 2 diabetes, hyperlipidemia, hypertension, history of CVA/TIA presenting with shaking chills. Patient reports he had scheduled incision and drainage for right inguinal abscess around 2:30pm yesterday at [facility]. Patient reports shortly after he started to feel sick after the procedure. Patient admits to shaking chills, shortness of breath, fever which prompted him to come to the emergency department. Patient denies any nausea, vomiting, diarrhea, constipation, cough, neck pain, headache, chest pain. EKG independently interpreted displays sinus tachycardia, rate 108 bpm, QTc 385 CXR independently interpreted mild pulmonary vascular congestion WBC 14.7 => 8.3, Hgb 15.9, platelet 217, A1c 12.1, sodium 136, potassium 4.5, BUN 14, creatinine 0.82, glucose 290. Tmax 101 F, CO 106, RR 17, BP 123/84, O2 sat 94% on room air Patient admitted to internal medicine service. 12/08/2023: Patient seen and evaluated bedside. Patient more active and easier to communicate with than yesterday. He states he feels a lot better. Patient afebrile overnight, no acute complaints. No overnight events. We are still waiting for wound cultures from [facility]. White blood count has continued to downtrend to 5.82. 12/09/2023: Patient seen and evaulated bedside. Called the lab at [facility], with the patient, for previous cultures to be faxed. Was told most recent cultures are still pending. Patient afebrile, no overnight events, no acute complaints. 12/09. Patient seen and examined. Being discharged on oral Keflex 5 mg every 6 hourly for 10 days per ID recommendations PHYSICAL EXAMINATION: GENERAL: The patient is alert and oriented x3, not in any acute distress. Well developed, well nourished. HEENT: Pupils are round and equally reacting to light. EOMI. No scleral icterus. No conjunctival pallor. Normocephalic, atraumatic. No pharyngeal erythema. No thyromegaly. CARDIOVASCULAR: S1 and S2 present. No murmurs, rubs, or gallops. PULMONARY: Chest is clear to auscultation, no wheezing or crackles. ABDOMEN: Soft, nontender, nondistended, normoactive bowel sounds. No palpable organomegaly. MUSCULOSKELETAL: No joint swelling or deformity. EXTREMITIES: No cyanosis, clubbing, or pedal edema. NEUROLOGICAL: Gross neurological examination did not reveal any focal deficits. SKIN: Right groin incision seen Dictation was produced using [employer] dictation software. please excuse any grammatical, word or spelling errors. Patient Condition at Discharge: Fair Plan - Discharge Summary Discharge Rx Participant: No New Discharge Prescriptions: New Cephalexin [Keflex] 500 mg PO Q6HR 10 Days #40 cap Continue amLODIPine [Norvasc] 5 mg PO DAILY lisinopriL [Zestril] 20 mg PO DAILY Dulaglutide [Trulicity] 0.75 mg SQ WE metFORMIN HCL [Glucophage] 1,000 mg PO BID Pioglitazone [Actos] 30 mg PO DAILY Rosuvastatin [Crestor] 10 mg PO DAILY Cholecalciferol (Vitamin D3) [Vitamin D3 (50 Mcg = 2000 Iu)] 50 mcg PO DAILY Discharge Medication List amLODIPine [Norvasc] 5 mg PO DAILY 08/08/19 [History] Pioglitazone [Actos] 30 mg PO DAILY 05/18/21 [History] metFORMIN HCL [Glucophage] 1,000 mg PO BID 05/18/21 [History] Cholecalciferol (Vitamin D3) [Vitamin D3 (50 Mcg = 2000 Iu)] 50 mcg PO DAILY 12/06/23 [History] Dulaglutide [Trulicity] 0.75 mg SQ WE 12/06/23 [History] Rosuvastatin [Crestor] 10 mg PO DAILY 12/06/23 [History] lisinopriL [Zestril] 20 mg PO DAILY 12/06/23 [History] Cephalexin [Keflex] 500 mg PO Q6HR 10 Days #40 cap 12/10/23 [Rx] Follow up Appointment(s)/Referral(s): Mariam Jorge MD [Primary Care Provider] - 1-2 days Ghazal Pisano MD [STAFF PHYSICIAN] - 1 Week Discharge Disposition: HOME SELF-CARE
[2023-12-10 12:45] LABS: Glucose,Whole Blood 321 mg/dL (70-110)
--- NOTE | 2023-12-10 14:16 | P.PN ---
Subjective Progress Note Date: 12/10/23 Principal diagnosis: Reason for follow-up is right groin abscess Patient is a 53-year-old male with a past medical history significant for diabetes mellitus hypertension hyperlipidemia CVA TIA bipolar depression presenting to the hospital for evaluation of rigors and chills with a drainage of an abscess to the right groin earlier that day in the outpatient setting and a previous history of drainage about 3 weeks ago. On today's evaluation that is 12/10/2023, patient has been afebrile, patient is breathing comfortably and is currently on room air, patient denies having any significant cough no chest pain, patient denies nausea vomiting or diarrhea and no abdominal pain pain to the right foot has decreased in intensity. Patient white count is 9.43, creatinine 0.8 local culture with group A strep, blood culture negative Objective - Vital Signs Vital signs: Vital Signs Temp 97.9 F 12/10/23 07:40 Pulse 94 12/10/23 07:40 Resp 16 12/10/23 07:40 BP 118/80 12/10/23 07:40 Pulse Ox 95 12/10/23 07:40 FiO2 Intake & Output 12/09/23 12/10/23 12/10/23 19:59 06:59 18:59 Intake Total 240 Balance 240 Intake: Oral 240 Other: # Voids - Exam GENERAL DESCRIPTION: Middle-age male lying in bed in no distress RESPIRATORY SYSTEM: Unlabored breathing , decreased breath sounds at bases HEART: S1 S2 regular rate and rhythm , ABDOMEN: Soft , no tenderness EXTREMITIES: Right groin open wound currently dressed - Labs CBC & Chem 7: 12/10/23 03:14 12/10/23 03:14 Labs: Abnormal Lab Results - Last 24 Hours (Table) 12/09/23 12/09/23 12/10/23 Range/Units 16:59 20:21 03:14 Eosinophils # 0.90 H (0.04-0.35) X 10*3/uL Carbon Dioxide (21.6-31.8) mmol/L Anion Gap (4.00-12.00) mmol/L Glucose (70-110) mg/dL POC Glucose (mg/dL) 258 H 286 H (70-110) mg/dL 12/10/23 12/10/23 Range/Units 03:14 06:04 Eosinophils # (0.04-0.35) X 10*3/uL Carbon Dioxide 20.9 L (21.6-31.8) mmol/L Anion Gap 13.10 H (4.00-12.00) mmol/L Glucose 235 H (70-110) mg/dL POC Glucose (mg/dL) 226 H (70-110) mg/dL Microbiology - Last 24 Hours (Table) 12/06/23 18:22 Blood Culture - Preliminary Blood Assessment and Plan (1) Sepsis Status: Acute Code(s): A41.9 - SEPSIS, UNSPECIFIED ORGANISM SNOMED Code(s): 50210632 (2) Abscess of right groin Status: Acute Code(s): L02.214 - CUTANEOUS ABSCESS OF GROIN SNOMED Code(s): 41050834 Plan: 1patient presented to hospital with sepsis in this patient who did have fever tachycardia elevated white count source in the right groin abscess that has been drained in the outpatient setting before the patient presented to the hospital likely staphylococcal infection with a question of possible MRSA 2-patient local culture media positive for Streptococcus group A blood culture has been negative we will recommend oral Keflex 500 mg every 6 hours for 10 days and close outpatient follow-up continue with the packing of the wound is ordered Dictation was produced using [employer] dictation software. please excuse any grammatical, word or spelling errors. Time with Patient: Less than 30
== END 2023-12-10 12:58 | disposition home health service (06) | DRG 721 ==
LOC: EC 17:52 → 6NMEDSUR 20:31 → OBSVTOIN 20:32 → 6NMEDSUR 21:01
PROVIDERS: ADMIT Hospitalist; ATTEND Hospitalist
DX: T81.41XA Infection following a procedure, superficial incisional surgical site, initial encounter (principal); A41.9 Sepsis, unspecified organism; E11.65 Type 2 diabetes mellitus with hyperglycemia; E78.5 Hyperlipidemia, unspecified; F17.200 Nicotine dependence, unspecified, uncomplicated; F31.9 Bipolar disorder, unspecified; F41.9 Anxiety disorder, unspecified; E66.9 Obesity, unspecified; I10 Essential (primary) hypertension; L02.214 Cutaneous abscess of groin; Z68.41 Body mass index [BMI] 40.0-44.9, adult; L02.415 Cutaneous abscess of right lower limb; Z79.84 Long term (current) use of oral hypoglycemic drugs; Z79.899 Other long term (current) drug therapy; Z86.73 Personal history of transient ischemic attack (TIA), and cerebral infarction without residual deficits; Z79.85 Long-term (current) use of injectable non-insulin antidiabetic drugs
CPT/HCPCS: 36415; 71046; 80048; 80053; 80202; 81003; 82565; 83036; 83605; 83735; 83880; 84145; 85025; 87040; 87636; 93005; 96365; 96367; 99285